=== PATIENT | female | born 1970 ===

== ENCOUNTER 2016-05-18 13:28 | Inpatient (IN) | payer OTHER, SELFPAY ==
--- NOTE | 2016-05-18 14:17 | C.PDOC ---
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 Pt states there "was an incident at the half-way" and now she can't go back. Pt walked to ED and now states that she is SI and depressed. Denies any other complaints at this time. Time Seen by Provider: 05/18/16 13:45 Chief Complaint (Nursing): Anxiety History Per: Patient History/Exam Limitations: no limitations Onset/Duration Of Symptoms: Hrs Current Symptoms Are (Timing): Still Present Severity: Mild Associated Symptoms: Depression, Suicidal Thoughts Involuntary Hold By: None Recent travel outside of the [place]: No Past Medical History Reviewed: Historical Data, Nursing Documentation, Vital Signs Vital Signs: Last Vital Signs Temp 98.3 F 05/18/16 15:35 Pulse 84 05/18/16 15:35 Resp 20 05/18/16 17:07 BP 164/78 H 05/18/16 15:35 Pulse Ox 100 05/18/16 15:35 - Medical History PMH: Anxiety, Asthma, HTN Family History: States: Unknown Family Hx - Social History Hx Alcohol Use: No Hx Substance Use: No - Immunization History Hx Tetanus Toxoid Vaccination: No Hx Influenza Vaccination: Yes (11/2016) Hx Pneumococcal Vaccination: No Review Of Systems Except As Marked, All Systems Reviewed And Found Negative. Psych: Positive for: Depression, Suicidal ideation Physical Exam - Physical Exam Appears: Non-toxic, No Acute Distress Skin: Warm, Dry, No Rash Head: Atraumatic, Normacephalic Eye(s): bilateral: Normal Inspection, PERRL, EOMI Oral Mucosa: Moist Neck: Normal ROM, Supple Chest: Symmetrical Cardiovascular: Rhythm Regular, No Friction Rub, No Murmur Respiratory: Normal Breath Sounds, No Rales, No Rhonchi, No Wheezing Back: Normal Inspection, No CVA Tenderness Extremity: Normal ROM, No Swelling Neurological/Psych: Oriented x3, Normal Motor, Normal Sensation Gait: Steady ED Course And Treatment - Laboratory Results Result Diagrams: 05/18/16 17:24 05/18/16 17:24 O2 Sat by Pulse Oximetry: 97 (on room air) Pulse Ox Interpretation: Normal Medical Decision Making Medical Decision Making: Pt well appearing, asking for a sandwich. Case was discussed with psychiatrist who agrees to admit the patient to his service. 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 - Scribe Statement The provider has reviewed the documentation as recorded by the Scribe Valente Morrison All medical record entries made by the Scribe were at my direction and personally dictated by me. I have reviewed the chart and agree that the record accurately reflects my personal performance of the history, physical exam, medical decision making, and the department course for this patient. I have also personally directed, reviewed, and agree with the discharge instructions and disposition.
[2016-05-18 17:37] LABS: BASO # 0.1 K/uL (0.0-0.2); EOS # 0.1 K/uL (0.0-0.7); EOS % 0.9 % (0.0-4.0); HEMATOCRIT 31.4 % (34.0-47.0); LYMPH # 1.5 K/uL (1.0-4.3); LYMPH % 17.6 % (20.0-40.0); MEAN CELL VOLUME 63.1 fL (81.0-99.0); MEAN CORPUSCULAR HGB CONC 30.1 g/dL (33.0-37.0); MEAN PLATELET VOLUME 8.9 fL (7.2-11.7); MONO # 0.5 K/uL (0.0-0.8); MONO % 5.7 % (0.0-10.0); RED CELL DISTRIBUTION WIDTH 18.4 % (11.5-14.5); WHITE BLOOD COUNT 8.5 K/uL (4.8-10.8)
[2016-05-18] MEDS ORDERED: Influenza Virus Vaccine 45 mcg/0.5 ml Syr IM ONE (17:37)
[2016-05-18 17:42] LABS: CHLORIDE 99 mmol/L (98-107); SODIUM 139 mmol/L (132-148)
[2016-05-18 17:43] LABS: POTASSIUM 3.4 mmol/L (3.6-5.2)
[2016-05-18 17:45] LABS: ALB/GLOB RATIO 1.2 (1.0-2.1); ALKALINE PHOSPHATASE 108 U/L (38-126); ALT/SGPT 24 U/L (9-52); AST/SGOT 28 U/L (14-36); BILIRUBIN,TOTAL 0.2 mg/dL (0.2-1.3); BLOOD UREA NITROGEN 15 mg/dL (7-17); CALCIUM 8.5 mg/dl (8.6-10.4); CARBON DIOXIDE 27 mmol/L (22-30); GFR AFRICAN-AMERICAN > 60; GLUCOSE,RANDOM 105 mg/dL (65-105); TOTAL PROTEIN 7.2 g/dL (6.3-8.3)
[2016-05-18 17:46] LABS: ALCOHOL SERUM < 10 mg/dl (0-10)
[2016-05-18 22:05] VITALS: O2SAT 97
[2016-05-19] MEDS ORDERED: Magnesium Hydroxide Susp 30 ml UD PO PRN (16:06)
[2016-05-20] MEDS ORDERED: Pneumococcal 23-Valent Vaccine IM ONE (10:00)
--- NOTE | 2016-05-20 22:31 | PCM.PSYCH ---
Initial Psychiatric Evaluation - Initial Psychiatric Evaluation Type of Admission: Voluntary Legal Status: Capacity Chief Complaint (in patient's own words): i HAVE THOUGHTS OF HURTING MYSELF Patient's Reaction to Hospitalization: I FEEL SAFE HERE History of Present Illness and Precipitating Events: PT IS 46N YEAR OLD FEMALE LIVING AT [facility] WITH HER BOY FRIEND. PT HAS 2 SONSAND 2 DAUGHTERS, THEY LIVE WITHBTHEIRVFATHER SINCE PT'S SEPARATION.PT HAS NO LEGAL HISTORY. PT HAS NEVER BEEN IN THE . BOTH PARENTS ARE4 . SHE HAS 1 BROTHER AND 2 SISTERS. PT HAS HAD THOUGHTS OF JUMPING OFF A JULISSA BUT HAS NEVER DONE SO. [place] [facility] [place]. PT HAS HAD PANIC ATTACKS. 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 SHE HASNO INCOME. SHE HAS BEEN ARRESTED FOR BACK [facility] SHE HAS HTN AND LD SUPPORT. PT DENIES ANY FAMILY HISTORY OF MENTAL ILLNESS OR SUBSTANCE ABUSE. Current Medications: Active Medications Generic Name Dose Route Start Last Admin Trade Name Freq PRN Reason Stop Dose Admin Acetaminophen 650 mg 05/19/16 16:05 Tylenol 325mg Tab PO Q6 PRN Pain, moderate (4-7) Magnesium Hydroxide 30 ml 05/19/16 16:06 Milk Of Magnesia PO Q6H PRN Constipation Paroxetine HCl 30 mg 05/20/16 10:00 05/20/16 09:22 Paxil PO 30 mg DAILY CORTES Administration Trazodone HCl 100 mg 05/19/16 22:00 05/20/16 21:48 Desyrel PO Not Given HS CORTES Past Psychiatric History - Past Psychiatric History Prior Professional Help: SEE HPI Pertinent Medical Hx (Current Medical&Sleep Prob, Allergies): Allergies Allergy/AdvReac Type Severity Reaction Status Date / Time No Known Allergies Allergy Verified 05/18/16 13:34 No Known Home Med 05/18/16 Review of Systems - Constitutional Constitutional: Malaise - EENT Eyes: UNREMARKABLE Ears: UNREMARKABLE Nose/Mouth/Throat: UNREMARKABLE - Breasts Breasts: UNREMARKABLE - Cardiovascular Cardiovascular: UNREMARKABLE - Respiratory Respiratory: UNREMARKABLE - Gastrointestinal Gastrointestinal: UNREMARKABLE - Genitourinary Genitourinary: UNREMARKABLE - Neurological Neurological: UNREMARKABLE - Psychiatric Psychiatric: Anhedonia, Anxiety, Change in Appetite, Difficulty Concentrating, Hopelessness, Suicidal Ideation - Endocrine Endocrine: UNREMARKABLE - Hematologic/Lymphatic Additional comments: ANEMIA THROMBOCYTOPENIA Mental Status Examination - Personal Presentation Personal Presentation: Looks older than stated age - Affect Affect: Constricted - Motor Activity Motor Activity: Calm - Reliability in Providing Information Reliability in Providing Information: Fair - Speech Speech: Organized - Mood Mood: Depressed, Anxious - Formal Thought Process Formal Thought Process: No Impairment - Cognitive Functions Orientation: Person, Place, Situation, Time Sensorium: Alert Attention/Concentration: Attentive Abstract Thinking: Uriah Estimate of Intelligence: Average Judgement: Intact, as evidence by: Good judgement Memory: Recent intact, as evidence by: 3/3 object recall, Remote intact, as evidenced by: Ability to recall historical events - Risk Risk: Suicidal - Strength & Assets Inventory Strength & Assets Inventory: Intelligence, Employment history DSM 5 DX - DSM 5 DSM 5 Diagnosis: MAJOR DEPRESSIVE DISORDER GENERALIZED ANXIETY DISORDER MAJOR DEPRESSIVE DISORDER PAXIL GROUPS SUPPORTIVE PSYCHOTHERAPY GENERALIZED ANXIETY DISORDER PAXIL COPING STRATEGIES - Recommended/Plan of Treatment Projected ELOS: 10 DAYS Prognosis: GOOD Discharge Plan and Discharge Criteria: NO LONGER SUICIDAL - Smoking Cessation Smoking Cessation Initiated: No
--- NOTE | 2016-05-20 22:41 | PCM.PYCHPN ---
Psychiatric Progress Note - Psychiatric Progress Note Patient seen today, length of contact: 17 MIN Patient Chief Complaint: I AM IRRITABLE Problems Identified/Issues Discussed: ANEMIA CONSTIPATION SYMPTOM MANAGEMENT Medical Problems: NOTHING ACUTE Diagnostic Results: REVIEWED DSM 5 Symptoms Update: ANHEDONIC AVOLITION Medication Change: No Medical Record Reviewed: Yes Mental Status Examination - Cognitive Function Orientation: Person, Place, Situation, Time Memory: Intact Attention: Poor Concentration: WNL Association: WNL Fund of Knowledge: WNL - Mood Mood: Depressed, Anxious - Affect Affect: Constricted - Speech Speech: Appropriate - Formal Thought Process Formal Thought Process: No Impairment - Suicidal Ideation Suicidal Ideation: No - Homicidal Ideation Homicidal Ideation: No Goal/Treatment Plan - Goal/Treatment Plan Need for Continued Stay: Severe depression anxiety Progress Toward Problem(s) and Goals/Treatment Plan: MAJOR DEPRESSIVE DISORDER PAXIL GROUPS OR CBT SUPPORTIVE PSYCHOTHERAPY Estimated Date of D/C: 05/26/16 - Smoking Cessation Smoking Cessation Initiated: No
--- NOTE | 2016-05-21 13:58 | PCM.PYCHPN ---
Psychiatric Progress Note - Psychiatric Progress Note Patient seen today, length of contact: 17 MIN Patient Chief Complaint: "anxiety" Problems Identified/Issues Discussed: Pt was seen, chart reviewed and case discussed. Psychiatric education and support given. 46 yo F with PMHx of MDD and PTSD was admitted for depression and anxiety attacks. States anxiety was triggered by a staff member at [facility]. Today, pt states she feels "down because of the weather." Denies suicidal ideation, denies hallucinations. Medication Change: No Medical Record Reviewed: Yes Mental Status Examination - Cognitive Function Orientation: Person, Place, Situation, Time Memory: Intact Attention: Poor Concentration: WNL Association: WNL Fund of Knowledge: WNL - Mood Mood: Depressed, Anxious - Affect Affect: Constricted - Speech Speech: Appropriate - Formal Thought Process Formal Thought Process: No Impairment - Suicidal Ideation Suicidal Ideation: No - Homicidal Ideation Homicidal Ideation: No Goal/Treatment Plan - Goal/Treatment Plan Need for Continued Stay: Remain at risks for inpatient hospitalization, Severe depression anxiety Progress Toward Problem(s) and Goals/Treatment Plan: Continue meds Attend groups and activities Support and psychoed After care planning Estimated Date of D/C: 05/26/16
--- NOTE | 2016-05-22 15:14 | PCM.PYCHPN ---
Psychiatric Progress Note - Psychiatric Progress Note Patient seen today, length of contact: 16 MIN Patient Chief Complaint: "Doing better" Problems Identified/Issues Discussed: Pt was seen, chart reviewed and case discussed. 46 yo F with PMHx of MDD and DUSTY was admitted for depression and anxiety. Today pt states her mood is improved and sleeping well. Denies suicidal ideation, homicidal ideations, and hallucinations. Upon discharge, pt plans to attend return to [facility] and ignore the staff member who triggered her anxiety. Pt will also attend an out patient program. Psychoeducation and support given. Medication Change: No Medical Record Reviewed: Yes Mental Status Examination - Cognitive Function Orientation: Person, Place, Situation, Time Memory: Intact Attention: Poor Concentration: WNL Association: WNL Fund of Knowledge: WNL - Mood Mood: Anxious - Affect Affect: Constricted - Speech Speech: Appropriate - Formal Thought Process Formal Thought Process: No Impairment - Suicidal Ideation Suicidal Ideation: No - Homicidal Ideation Homicidal Ideation: No Goal/Treatment Plan - Goal/Treatment Plan Need for Continued Stay: Remain at risks for inpatient hospitalization, Severe depression anxiety Progress Toward Problem(s) and Goals/Treatment Plan: MDD: Continue meds Attend groups and activities Support and psychoed After care planning DUSTY: Continue meds Attend groups and activities Support and psychoed After care planning Estimated Date of D/C: 05/26/16
--- NOTE | 2016-05-23 09:42 | PCM.PYCHDC ---
Mental Status Examination - Mental Status Examination Orientation: Person, Place, Situation, Time Memory: Intact Mood: Anxious Affect: Constricted Speech: Appropriate Attention: WNL Association: WNL Fund of Knowledge: WNL Formal Thought Process: No Impairment Suicidal Ideation: No Current Homicidal Ideation?: No Discharge Summary - Discharge Note Reason for Hospitalization: Depression, suicidal thoughts Psychiatric History (includes Medical, Family, Personal Hx): MDD, DUSTY Consultations:: List each consultation separately and include: 1. Reason for request. 2. Findings. 3. Follow-up Summary of Hospital Course include:: 1. Description of specific treatment plan utilized for patients during their course of treatmen. 2. Summarize the time- course for resolution of acute symptoms and/or regressed behaviors. 3. Describe issues identified and worked on during hospitalization. 4. Describe medication utilized. 5. Describe medical problems identified and treated. 6. Reassessment of suicide risk Summary of Hospital Course: Pt seen, chart reviewed and case discussed with staff. Pt is feeling better and eager for discharge. Will be returning to . [facility] senior living. Pt attended groups and activities Supportive psychotherapy used Paxil continued and she responded well to treatment She infact improved rather quickly that this may be more situational than organic this time. - Final Diagnosis (DSM 5) Condition upon Discharge: GOOD DSM 5: Major Depressive Disorder Generalized Anxiety Disorder Disposition: HOME/ ROUTINE Follow-up Treatment Plan: Continue below medications Attend aftercare return to ER if experience suicidal ideation, homicidal ideation, change in status or symptoms return. Prescriptions/Medication Reconciliation: traZODone [Desyrel] 100 mg PO HS #30 tab PARoxetine [Paxil] 30 mg PO DAILY #30 tab - Smoking Cessation Smoking Cessation Medication prescribed: No - Antipsychotic Medications Pt discharged on 2 or more routine antipsychotic medications: No
[2016-05-23 11:49] VITALS: BP 123/76; PULSE 84; RESP 20; TEMP 97.5
== END 2016-05-23 10:55 | disposition home or self-care (01) ==
LOC: C.ER 13:28 → C.5E 15:52
PROVIDERS: ADMIT Psychiatry & Neurology Psychiatry; ATTEND Psychiatry & Neurology Psychiatry
PROC: GZ3ZZZZ Medication Management (ICD-10-PCS; principal; 2016-05-18)
PROC: GZHZZZZ Group Psychotherapy (ICD-10-PCS; 2016-05-18)
PROC: GZ56ZZZ Individual Psychotherapy, Supportive (ICD-10-PCS; 2016-05-18)
DX: F32.9 Major depressive disorder, single episode, unspecified (principal); R45.851 Suicidal ideations; F41.1 Generalized anxiety disorder; I10 Essential (primary) hypertension; J45.909 Unspecified asthma, uncomplicated

== ENCOUNTER 2016-06-18 21:44 | Observation (INO) | payer MEDICAID, SELFPAY ==
[2016-06-18 22:20] VITALS: RESP 18
--- NOTE | 2016-06-18 23:29 | C.PDOC ---
History Of Present Illness 46 year old patient presents to the ED complaining of having a panic attack at the long-term [facility]. Patient states she has a history of panic attacks. She is currently not taking medications for it because she lost her prescriptions. Patient is requesting an evaluation. She denies chest pain, shortness of breath , nausea, vomiting, suicidal or homicidal ideation. Time Seen by Provider: 06/18/16 22:55 Chief Complaint (Nursing): Anxiety History Per: Patient History/Exam Limitations: no limitations Onset/Duration Of Symptoms: Other Current Symptoms Are (Timing): Still Present Severity: None Pain Scale Rating Of: 0 Recent travel outside of the [place]: No Additional History Per: Patient Past Medical History Reviewed: Historical Data, Nursing Documentation, Vital Signs Vital Signs: Last Vital Signs Temp 98 F 06/19/16 02:42 Pulse 80 06/19/16 02:42 Resp 18 06/19/16 02:42 BP 117/72 06/19/16 02:42 Pulse Ox 99 06/19/16 02:42 - Medical History PMH: Anxiety, Asthma, Depression, HTN, Kidney Stones, Post Traumatic Stress Disorder, Chronic Kidney Disease - [facility] Procedures GROUP PSYCHOTHERAPY (05/18/16) INDIVIDUAL PSYCHOTHERAPY, SUPPORTIVE (05/18/16) MEDICATION MANAGEMENT (05/18/16) Family History: States: Unknown Family Hx - Social History Hx Alcohol Use: No Hx Substance Use: No - Immunization History Hx Tetanus Toxoid Vaccination: No Hx Influenza Vaccination: Yes (11/2016) Hx Pneumococcal Vaccination: No Review Of Systems Except As Marked, All Systems Reviewed And Found Negative. Cardiovascular: Negative for: Chest Pain Respiratory: Negative for: Shortness of Breath Gastrointestinal: Negative for: Nausea, Vomiting Psych: Positive for: Anxiety. Negative for: Suicidal ideation Physical Exam - Physical Exam Appears: Non-toxic, No Acute Distress Skin: Warm, Dry Head: Atraumatic, Normacephalic Neck: Normal ROM, Supple Chest: Symmetrical Cardiovascular: Rhythm Regular Respiratory: Normal Breath Sounds, No Accessory Muscle Use, No Rales, No Rhonchi , No Wheezing Back: Normal Inspection Extremity: Normal ROM Neurological/Psych: Oriented x3, Normal Speech, Normal Cognition Gait: Steady ED Course And Treatment O2 Sat by Pulse Oximetry: 100 (room air) Pulse Ox Interpretation: Normal Progress Note: Patient arrived in the ED with an elevated blood pressure. Upon reassessment, patient's blood pressure has stabilized. Patient is homeless and sleeping comfortably in the ED. Paitent will be kept for observation until tomorrow morning because the long-term is closed for the night. Patient will be discharged in the morning. 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 - Scribe Statement The provider has reviewed the documentation as recorded by the Scribe Christa Huston All medical record entries made by the Scribe were at my direction and personally dictated by me. I have reviewed the chart and agree that the record accurately reflects my personal performance of the history, physical exam, medical decision making, and the department course for this patient. I have also personally directed, reviewed, and agree with the discharge instructions and disposition.
[2016-06-19 02:44] VITALS: BP 117/72; PULSE 80; TEMP 98
[2016-09-26 21:54] VITALS: O2SAT 100
== END 2016-06-19 06:10 | disposition home or self-care (01) ==
LOC: C.ER 21:44 → C.9OBSV 06-19 00:04
PROVIDERS: ADMIT Emergency Medicine; ATTEND Emergency Medicine
DX: F41.8 Other specified anxiety disorders (principal); F43.10 Post-traumatic stress disorder, unspecified; J45.909 Unspecified asthma, uncomplicated; N18.9 Chronic kidney disease, unspecified; I12.9 Hypertensive chronic kidney disease with stage 1 through stage 4 chronic kidney disease, or unspecified chronic kidney disease
CPT/HCPCS: 99284; G0378

== ENCOUNTER 2016-09-10 13:17 | Emergency (ER) | payer MEDICAID, OTHER ==
[2016-09-10 13:24] VITALS: TEMP 97.8; O2SAT 100
--- NOTE | 2016-09-10 14:25 | C.PDOC ---
History Of Present Illness Patient is a 46 y/o female, whose past medical history includes HTN, presents to the emergency department for evaluation of chest and shoulder pain. Patient reports L sided shoulder pain that is worse with movement and L sided chest pain that is worse with inspiration. Reports some cough. Denies any vomiting, abdominal pain, palpitations, shortness of breath, headache, weakness, numbness , fever Time Seen by Provider: 09/10/16 13:31 Chief Complaint (Nursing): Chest Pain History Per: Patient History/Exam Limitations: no limitations Onset/Duration Of Symptoms: Days (2) Current Symptoms Are (Timing): Still Present Quality: Pressure Associated Symptoms: Nausea, Other (dizziness). denies: Dyspnea, Diaphoresis, Syncope Modifying Factors: None Exacerbating Factors: None Alleviating Factors: None Recent travel outside of the [place]: No Additional History Per: Patient Past Medical History Reviewed: Historical Data, Nursing Documentation, Vital Signs Vital Signs: Last Vital Signs Temp 97.8 F 09/10/16 13:20 Pulse 68 09/10/16 16:20 Resp 18 09/10/16 16:20 BP 124/76 09/10/16 16:20 Pulse Ox 100 09/10/16 16:20 - Medical History PMH: Anxiety, Asthma, Depression, HTN, Kidney Stones, Post Traumatic Stress Disorder, Chronic Kidney Disease Denies: Diabetes, Hepatitis, HIV, Seizures, Sexually Transmitted Disease - [facility] Procedures GROUP PSYCHOTHERAPY (05/18/16) INDIVIDUAL PSYCHOTHERAPY, SUPPORTIVE (05/18/16) MEDICATION MANAGEMENT (05/18/16) Family History: States: Unknown Family Hx - Social History Hx Alcohol Use: No Hx Substance Use: No - Immunization History Hx Tetanus Toxoid Vaccination: No Hx Influenza Vaccination: Yes (11/2016) Hx Pneumococcal Vaccination: No Review Of Systems Except As Marked, All Systems Reviewed And Found Negative. Constitutional: Negative for: Fever, Chills Cardiovascular: Positive for: Chest Pain. Negative for: Palpitations, Orthopnea , Edema, Light Headedness Respiratory: Positive for: Cough. Negative for: Shortness of Breath, SOB with Excertion, Sputum, Wheezing Gastrointestinal: Negative for: Nausea, Vomiting, Abdominal Pain, Diarrhea Genitourinary: Negative for: Dysuria Musculoskeletal: Negative for: Neck Pain Skin: Negative for: Rash Neurological: Negative for: Weakness, Numbness, Headache, Dizziness Physical Exam - Physical Exam Appears: Well, Non-toxic, No Acute Distress Skin: Normal Color, Warm, Dry Head: Atraumatic, Normacephalic Eye(s): bilateral: Normal Inspection, PERRL, EOMI Neck: Normal ROM, Supple Chest: Symmetrical, No Tenderness Cardiovascular: Rhythm Regular, No Murmur Respiratory: Normal Breath Sounds, No Accessory Muscle Use, No Rales, No Rhonchi , No Wheezing Gastrointestinal/Abdominal: Soft, No Tenderness Back: Normal Inspection, No CVA Tenderness Extremity: Normal ROM, No Pedal Edema Neurological/Psych: Oriented x3, Normal Speech, Normal Cognition Gait: Steady ED Course And Treatment - Laboratory Results Result Diagrams: 09/10/16 14:40 09/10/16 14:40 ECG: Interpreted By Me, Viewed By Me ECG Rhythm: Sinus Rhythm ECG Interpretation: No Acute Changes Interpretation Of ECG: Normal intervals. No ST wave changes. Rate From EC (bpm) O2 Sat by Pulse Oximetry: 100 (on RA) Pulse Ox Interpretation: Normal Medical Decision Making Medical Decision Making: Differential Diagnosis: pneumothorax, pneumonia, vs. ACS Blood work, EKG, CXR ordered and reviewed. Patient was given Aspirin. 3:57PM EKG shows NSR at 66bpm with normal intervals and no ST changes. Cxray negative. Shoulder xray negative. Trop x 1 negative. D-dimer negative Chest pain is resolved on reevaluation. Patient has had 2 days of unchanged pain that is worse with movement of L arm and chest pain associated with cough. Appears more consistent with musculoskeletal strain and uri. Patient has normal ekg and only risk factor is htn. She reports that she can follow-up with clinic and will return with worsening symptoms. Disposition - Disposition Disposition: HOME/ ROUTINE Disposition Time: 16:02 Condition: GOOD Additional Instructions: Return to ED if condition worsens. Follow-up with PMD within 2 days - Clinical Impression Clinical Impression: Pleuritic pain, Shoulder pain - Scribe Statement The provider has reviewed the documentation as recorded by the Lj Huston All medical record entries made by the Lorenzoibshonna were at my direction and personally dictated by me. I have reviewed the chart and agree that the record accurately reflects my personal performance of the history, physical exam, medical decision making, and the department course for this patient. I have also personally directed, reviewed, and agree with the discharge instructions and disposition.
[2016-09-10 14:47] LABS: BASO # 0.1 K/uL (0.0-0.2); BASO % 1.9 % (0.0-2.0); EOS # 0.1 K/uL (0.0-0.7); EOS % 0.9 % (0.0-4.0); HEMOGLOBIN 9.6 g/dL (11.0-16.0); LYMPH # 1.7 K/uL (1.0-4.3); LYMPH % 22.4 % (20.0-40.0); MEAN CELL VOLUME 61.3 fL (81.0-99.0); MEAN CORPUSCULAR HEMOGLOBIN 18.2 pg (27.0-31.0); MEAN CORPUSCULAR HGB CONC 29.7 g/dL (33.0-37.0); MEAN PLATELET VOLUME 8.6 fL (7.2-11.7); MONO # 0.4 K/uL (0.0-0.8); MONO % 5.7 % (0.0-10.0); NEUT # 5.1 K/uL (1.8-7.0); NEUT % 69.1 % (50.0-75.0); RBC 5.27 Mil/uL (3.80-5.20); RED CELL DISTRIBUTION WIDTH 19.8 % (11.5-14.5); WHITE BLOOD COUNT 7.4 K/uL (4.8-10.8)
[2016-09-10 14:50] LABS: ALBUMIN 3.7 g/dL (3.5-5.0)
[2016-09-10 14:53] LABS: GFR AFRICAN-AMERICAN > 60; GFR NON-AFRICAN AMERICAN > 60
[2016-09-10 14:54] LABS: ALB/GLOB RATIO 1.2 (1.0-2.1); ALT/SGPT 32 U/L (9-52); AST/SGOT 21 U/L (14-36); BLOOD UREA NITROGEN 12 mg/dL (7-17); CALCIUM 8.4 mg/dl (8.6-10.4)
--- NOTE | 2016-09-10 15:01 | RAD ---
HISTORY: chest pain COMPARISON: None available. TECHNIQUE: Chest, one view. FINDINGS: LUNGS: Left basilar atelectasis. Please note that chest x-ray has limited sensitivity for the detection of pulmonary masses. PLEURA: No significant pleural effusion identified. No definite pneumothorax . CARDIOVASCULAR: Heart size appears within normal limits. OSSEOUS STRUCTURES: No acute osseous abnormality identified. VISUALIZED UPPER ABDOMEN: Unremarkable. OTHER FINDINGS: None. IMPRESSION: Minimal left basilar atelectasis.
[2016-09-10 15:03] LABS: B-TYPE NATRIURETIC PEPTIDE 132 pg/mL (0-450); CK-MB 0.64 ng/mL (0.0-3.38)
--- NOTE | 2016-09-10 15:44 | RAD ---
PROCEDURE: Radiographs of the Left Shoulder HISTORY: L shoulder pain COMPARISON: Chest x-ray performed 09/10/16 FINDINGS: BONES: No acute displaced fracture. The distal clavicle and underlying ribs appear intact. JOINTS: No acute dislocation. SOFT TISSUES: Soft tissues appear unremarkable. No evidence of radiopaque foreign body. IMPRESSION: No acute displaced fracture or dislocation evident. If symptoms persist or if there is continued clinical concern, x-ray follow-up in 7-10 days should be considered.
[2016-09-10 16:21] VITALS: BP 124/76; PULSE 68; RESP 18
--- NOTE | 2016-09-11 12:58 | CARD ---
APPROVED REPORT EKG Measurement Heart [id number] <Conclusion> Normal sinus rhythm Normal ECG
--- NOTE | 2016-09-19 14:37 | CARD ---
APPROVED REPORT EKG Measurement Heart [id number] <Conclusion> Normal sinus rhythm Normal ECG
== END 2016-09-10 16:21 | disposition home or self-care (01) ==
LOC: C.ER 13:17
DX: R07.81 Pleurodynia (principal); M25.512 Pain in left shoulder

== ENCOUNTER 2016-10-09 00:24 | Emergency (ER) | payer MEDICAID ==
[2016-10-09 01:44] VITALS: BP 147/86; O2SAT 100
[2016-10-09] MEDS ORDERED: Apap-Butalbital-Caffeine 325-50-40mg Tab PO STA (04:08)
[2016-10-09] MEDS ORDERED: Apap-Butalbital-Caffeine 325-50-40mg Tab ONE (04:21)
--- NOTE | 2016-10-09 05:12 | C.PDOC ---
History Of Present Illness 46 year old female who presents to the ER with a complaint of a headache for the past 3 days. Patient was found in the ER waiting room, when questioned if she wants to be seen she stated she has a headache and wants a place to stay. Denies nausea, vomiting, dizziness, fever, or chills. Time Seen by Provider: 10/09/16 02:05 Chief Complaint (Nursing): Headache History Per: Patient History/Exam Limitations: no limitations Onset/Duration Of Symptoms: Days Current Symptoms Are (Timing): Still Present Preceeding Symptoms: None Associated Symptoms: denies: Photophobia, Blurred Vision, Nausea, Vomiting, Extremity Weakness Recent travel outside of the [place]: No Past Medical History Reviewed: Historical Data, Nursing Documentation, Vital Signs Vital Signs: Last Vital Signs Temp 98 F 10/09/16 04:50 Pulse 62 10/09/16 04:50 Resp 16 10/09/16 04:50 BP 147/86 10/09/16 01:39 Pulse Ox 100 10/09/16 06:33 - Medical History PMH: Anxiety, Asthma, Depression, HTN, Kidney Stones, Post Traumatic Stress Disorder, Chronic Kidney Disease, Schizophrenia Surgical History: No Surg Hx - [facility] Procedures GROUP PSYCHOTHERAPY (05/18/16) INDIVIDUAL PSYCHOTHERAPY, SUPPORTIVE (05/18/16) MEDICATION MANAGEMENT (05/18/16) Family History: States: Unknown Family Hx - Social History Hx Alcohol Use: No Hx Substance Use: No - Immunization History Hx Tetanus Toxoid Vaccination: No Hx Influenza Vaccination: Yes (11/2016) Hx Pneumococcal Vaccination: No Review Of Systems Constitutional: Negative for: Fever, Chills Gastrointestinal: Negative for: Nausea, Vomiting, Diarrhea Neurological: Positive for: Headache. Negative for: Dizziness Physical Exam - Physical Exam Appears: Non-toxic, No Acute Distress Skin: Normal Color, Warm, Dry, No Rash Head: Atraumatic, Normacephalic Eye(s): bilateral: Normal Inspection, PERRL, EOMI Ear(s): Bilateral: Normal Oral Mucosa: Moist Throat: No Erythema, No Exudate Neck: Normal ROM, Supple Chest: Symmetrical, No Tenderness Cardiovascular: Rhythm Regular, No Friction Rub, No Murmur Respiratory: Normal Breath Sounds, No Rales, No Rhonchi, No Wheezing Gastrointestinal/Abdominal: Soft, No Tenderness Back: Normal Inspection, No CVA Tenderness Extremity: Normal ROM, No Tenderness, No Swelling Neurological/Psych: Oriented x3, Normal Speech, Normal Cognition, Normal Motor Gait: Steady ED Course And Treatment O2 Sat by Pulse Oximetry: 100 (Room air) Pulse Ox Interpretation: Normal Medical Decision Making Medical Decision Making: Plan: * Fioricet On reevaluation, patient's pain has improved, Ambulatory in the Ed with steady gait. will discharge home. Disposition - Disposition Referrals: Alexsandra Fletcher MD [Staff Provider] - Disposition: HOME/ ROUTINE Disposition Time: 04:56 Condition: GOOD Prescriptions: Acetaminophen/Butalbital/Caf [Fioricet] 1 tab PO TID PRN #20 tab PRN Reason: Headache Instructions: Migraine Headache (ED) Forms: [facility] (Gibraltarian) - Clinical Impression Clinical Impression: Migraine, Malingering - Scribe Statement The provider has reviewed the documentation as recorded by the Scribe Chemo Dawn All medical record entries made by the Scribe were at my direction and personally dictated by me. I have reviewed the chart and agree that the record accurately reflects my personal performance of the history, physical exam, medical decision making, and the department course for this patient. I have also personally directed, reviewed, and agree with the discharge instructions and disposition.
[2016-10-09 05:18] VITALS: PULSE 62; RESP 16; TEMP 98
== END 2016-10-09 04:55 | disposition home or self-care (01) ==
LOC: C.ER 00:24
DX: G43.909 Migraine, unspecified, not intractable, without status migrainosus (principal); Z76.5 Malingerer [conscious simulation]

== ENCOUNTER 2016-12-03 12:17 | Emergency (ER) | payer MEDICAID ==
[2016-12-03 12:27] VITALS: TEMP 98.2; O2SAT 100
--- NOTE | 2016-12-03 14:06 | C.PDOC ---
History Of Present Illness 46 y/o female with multiple medical issues c/o pain to proximal lateral left thigh that radiates to left arm and up to her head with headache x several days. pt denies any injuries or falls. no fever or chills. nothing taken for pain. denies cp, sob, no calf pain or tenderness. . Time Seen by Provider: 12/03/16 12:41 Chief Complaint (Nursing): Lower Extremity Problem/Injury History Per: Patient History/Exam Limitations: no limitations Onset/Duration Of Symptoms: Days (4) Current Symptoms Are (Timing): Worse Severity: Moderate Pain Scale Rating Of: 8 Recent travel outside of the [place]: No Past Medical History Reviewed: Historical Data, Nursing Documentation, Vital Signs Vital Signs: Last Vital Signs Temp 98.2 F 12/03/16 12:24 Pulse 76 12/03/16 16:00 Resp 18 12/03/16 16:00 BP 156/90 H 12/03/16 16:00 Pulse Ox 100 12/04/16 21:25 - Medical History PMH: Anxiety, Asthma, Depression, HTN, Kidney Stones, Post Traumatic Stress Disorder, Chronic Kidney Disease, Schizophrenia Denies: Diabetes, Hepatitis, HIV, Seizures, Sexually Transmitted Disease - [facility] Procedures GROUP PSYCHOTHERAPY (05/18/16) INDIVIDUAL PSYCHOTHERAPY, SUPPORTIVE (05/18/16) MEDICATION MANAGEMENT (05/18/16) Family History: States: Unknown Family Hx - Social History Hx Tobacco Use: No Hx Alcohol Use: No Hx Substance Use: No - Immunization History Hx Tetanus Toxoid Vaccination: No Hx Influenza Vaccination: No Hx Pneumococcal Vaccination: No Review Of Systems Constitutional: Negative for: Fever, Chills Cardiovascular: Negative for: Chest Pain Respiratory: Negative for: Cough, Shortness of Breath Musculoskeletal: Positive for: Arm Pain, Leg Pain. Negative for: Neck Pain Skin: Negative for: Rash Neurological: Negative for: Weakness, Numbness Physical Exam - Physical Exam Appears: Non-toxic, No Acute Distress Skin: Warm, Dry Head: Atraumatic, Normacephalic Oral Mucosa: Moist Neck: Normal ROM, No Midline Cervical Tenderness Chest: Symmetrical, No Deformity, No Tenderness Cardiovascular: Rhythm Regular, No Murmur Respiratory: Normal Breath Sounds Gastrointestinal/Abdominal: Soft, No Tenderness Back: Normal Inspection, No CVA Tenderness, No Vertebral Tenderness Extremity: Normal ROM, Tenderness (left lateral thigh, no erythema, warmth, or swelling noted, no ecchymosis. ), Other (tender left hip with from, ambulates normally) Pulses: Left Dorsalis Pedis: Normal, Right Dorsalis Pedis: Normal Neurological/Psych: Oriented x3, Normal Speech, Normal Cognition, Normal Cranial Nerves, Normal Motor, Normal Sensation ED Course And Treatment O2 Sat by Pulse Oximetry: 100 Medical Decision Making Medical Decision Making: pt reports she has menses now, and is not . 353 pm pt with no acute fx on xray, some arthritis noted. will d/c with tylenol and muscle relaxant. Disposition Counseled Patient/Family Regarding: Diagnosis, Need For Followup, Rx Given - Disposition Referrals: [facility] [Outside] Disposition: HOME/ ROUTINE Disposition Time: 15:54 Condition: STABLE Additional Instructions: Follow up in medical clinic; call for an appt. Take Tylenol as prescribed; take Muscle relaxant at bedtime- makes you sleepy. Return to ER for any worse symptoms. Prescriptions: Acetaminophen [Tylenol 325mg tab] 650 mg PO Q6 #30 tab Cyclobenzaprine [Cyclobenzaprine HCl] 10 mg PO HS #6 tab Instructions: Hip Pain (ED) Forms: General Discharge Instructions, [facility] (Hungarian) - Clinical Impression Clinical Impression: Hip pain, left
--- NOTE | 2016-12-03 15:53 | RAD ---
PROCEDURE: Left Hip X-ray Radiographs. HISTORY: left hip and up thigh pain COMPARISON: None. FINDINGS: BONES: Normal. No fracture. 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 Unremarkable appearance of the hips. SOFT TISSUES: Normal. OTHER FINDINGS: None. IMPRESSION: Unremarkable left hip. 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
[2016-12-03 16:00] VITALS: BP 156/90; PULSE 76; RESP 18
== END 2016-12-03 16:01 | disposition home or self-care (01) ==
LOC: C.ER 12:17
DX: M25.552 Pain in left hip (principal)

== ENCOUNTER 2017-02-12 14:07 | Emergency (ER) | payer MEDICAID ==
[2017-02-12 14:25] VITALS: PULSE 60
--- NOTE | 2017-02-12 15:42 | CT ---
PROCEDURE: CT HEAD WITHOUT CONTRAST. HISTORY: Headache, HTN COMPARISON: None available. TECHNIQUE: Axial computed tomography images were obtained through the head/brain without intravenous contrast. Radiation dose: Total exam DLP = 820.70 mGy-cm. This CT exam was performed using one or more of the following dose reduction techniques: Automated exposure control, adjustment of the mA and/or kV according to patient size, and/or use of iterative reconstruction technique. FINDINGS: HEMORRHAGE: No intracranial hemorrhage. BRAIN: No mass effect or edema. The moreno-white matter differentiation appears intact. Please note that MRI with diffusion imaging is more sensitive in the detection of acute ischemic event. VENTRICLES: No hydrocephalus. CALVARIUM: Unremarkable. PARANASAL SINUSES: Unremarkable as visualized. No significant inflammatory changes. MASTOID AIR CELLS: Unremarkable as visualized. No inflammatory changes. OTHER FINDINGS: None. IMPRESSION: No acute intracranial pathology identified.
[2017-02-12 15:53] LABS: BASO # 0.1 K/uL (0.0-0.2); EOS # 0.1 K/uL (0.0-0.7); EOS % 1.5 % (0.0-4.0); HEMATOCRIT 30.1 % (34.0-47.0); LYMPH # 1.6 K/uL (1.0-4.3); LYMPH % 25.3 % (20.0-40.0); MEAN CELL VOLUME 60.1 fL (81.0-99.0); MEAN CORPUSCULAR HEMOGLOBIN 18.1 pg (27.0-31.0); MEAN CORPUSCULAR HGB CONC 30.2 g/dL (33.0-37.0); MEAN PLATELET VOLUME 8.7 fL (7.2-11.7); MONO # 0.5 K/uL (0.0-0.8); MONO % 8.1 % (0.0-10.0); RED CELL DISTRIBUTION WIDTH 19.9 % (11.5-14.5); WHITE BLOOD COUNT 6.3 K/uL (4.8-10.8)
[2017-02-12 16:14] LABS: ALB/GLOB RATIO 1.4 (1.0-2.1); ALKALINE PHOSPHATASE 132 U/L (38-126); ALT/SGPT 27 U/L (9-52); AST/SGOT 33 U/L (14-36); BILIRUBIN,TOTAL 0.5 mg/dL (0.2-1.3); BLOOD UREA NITROGEN 14 mg/dL (7-17); CALCIUM 8.1 mg/dl (8.6-10.4); CARBON DIOXIDE 28 mmol/L (22-30); CHLORIDE 100 mmol/L (98-107); GFR AFRICAN-AMERICAN > 60; GLUCOSE,RANDOM 86 mg/dL (65-105); MAGNESIUM 1.6 mg/dL (1.6-2.3); POTASSIUM 3.8 mmol/L (3.6-5.2); SODIUM 133 mmol/L (132-148); TOTAL PROTEIN 6.7 g/dL (6.3-8.3)
[2017-02-12 16:47] VITALS: RESP 16; TEMP 97.5; O2SAT 100
[2017-02-12 16:56] LABS: RBC URINE 1 /hpf (0-3); URINE BACTERIA MOD (<OCC); URINE BILIRUBIN NEGATIVE (NEGATIVE); URINE BLOOD NEGATIVE (NEGATIVE); URINE COLOR Straw (YELLOW); URINE GLUCOSE (UA) NORMAL (Normal); URINE KETONE TRACE mg/dL (NEGATIVE); URINE LEUKOCYTE ESTERASE 3+ Leu/uL (Negative); URINE PROTEIN NEGATIVE (NEGATIVE); URINE UROBILINOGEN NORMAL mg/dL (0.2-1.0); WBC URINE 31 /hpf (0-5)
--- NOTE | 2017-02-12 17:12 | C.PDOC ---
History Of Present Illness Pt was sent from the clinic due to elevated blood pressure. Time Seen by Provider: 02/12/17 14:55 Chief Complaint (Nursing): High Blood Pressure History Per: Patient Onset/Duration Of Symptoms: Unknown Current Symptoms Are (Timing): Still Present Associated Symptoms: Headache Severity: Moderate Exacerbating Factor(s): Pos: None Additional History Per: Prior Records Past Medical History Reviewed: Historical Data, Nursing Documentation, Vital Signs Vital Signs: Last Vital Signs Temp 97.5 F L 02/12/17 16:46 Pulse 60 02/12/17 16:46 Resp 16 02/12/17 16:46 BP 179/79 H 02/12/17 16:46 Pulse Ox 100 02/12/17 16:46 - Medical History PMH: Anemia, Anxiety, Asthma, Depression, HTN (Gestational), Kidney Stones, Post Traumatic Stress Disorder, Chronic Kidney Disease, Schizophrenia Other Surgeries: Tubal ligation - [facility] Procedures GROUP PSYCHOTHERAPY (05/18/16) INDIVIDUAL PSYCHOTHERAPY, SUPPORTIVE (05/18/16) MEDICATION MANAGEMENT (05/18/16) Family History: States: Unknown Family Hx - Social History Hx Tobacco Use: No Hx Alcohol Use: No Hx Substance Use: No - Immunization History Hx Tetanus Toxoid Vaccination: No Hx Influenza Vaccination: No Hx Pneumococcal Vaccination: No Review Of Systems Except As Marked, All Systems Reviewed And Found Negative. Constitutional: Negative for: Fever ENT: Positive for: Nose Congestion, Throat Pain Respiratory: Positive for: Cough. Negative for: Shortness of Breath, Hemoptysis Gastrointestinal: Negative for: Vomiting, Abdominal Pain, Diarrhea Genitourinary: Positive for: Dysuria (?) Musculoskeletal: Positive for: Back Pain. Negative for: Neck Pain Skin: Negative for: Rash Neurological: Positive for: Headache. Negative for: Weakness, Numbness, Seizures, Altered Mental Status Physical Exam - Physical Exam Appears: Non-toxic, No Acute Distress Skin: Normal Color, Warm, Dry, No Rash Head: Atraumatic, Normacephalic Eye(s): bilateral: Normal Inspection, PERRL, EOMI Neck: Normal ROM, Supple Cardiovascular: Rhythm Regular Respiratory: Normal Breath Sounds, No Accessory Muscle Use Gastrointestinal/Abdominal: Soft, No Tenderness Back: No CVA Tenderness Extremity: Normal ROM Neurological/Psych: Oriented x3, Normal Speech, Normal Motor, Normal Sensation ED Course And Treatment - Laboratory Results Result Diagrams: 02/12/17 15:47 02/12/17 15:47 Interpretation Of Abnormal: Probable UTI, urine C&S sent. Urine POC: Negative ECG: Interpreted By Me, Viewed By Me ECG Rhythm: Sinus Rhythm ECG Interpretation: No Acute Changes Rate From EC O2 Sat by Pulse Oximetry: 100 Pulse Ox Interpretation: Normal - CT Scan/US CT head Other Rad Studies (CT/US): Read By Radiologist, Radiology Report Reviewed CT/US Interpretation: IMPRESSION: No acute intracranial pathology identified. Disposition Counseled Patient/Family Regarding: Studies Performed, Diagnosis, Need For Followup, Rx Given - Disposition Referrals: [facility] [Outside] Disposition: HOME/ ROUTINE Disposition Time: 17:13 Condition: IMPROVED Additional Instructions: Follow up in the clinic within 1 week. Return to the ER if you develop vomiting , shortness of breath, high fever, worsening of symptoms or if you have any other concerns. Prescriptions: Acetaminophen [Tylenol Extra Strength] 2 tab PO Q6 PRN #30 tablet PRN Reason: Pain, Moderate (4-7) Cephalexin [cephalexin] 500 mg PO TID #21 cap hydroCHLOROthiazide [Microzide] 12.5 mg PO DAILY #30 cap Instructions: Hypertension (ED) Forms: [facility] (Tristanian) - Clinical Impression Clinical Impression: Hypertension, UTI (urinary tract infection), URI (upper respiratory infection)
[2017-02-12 17:30] VITALS: BP 168/85
--- NOTE | 2017-02-13 23:10 | CARD ---
APPROVED REPORT EKG Measurement Heart [id number] <Conclusion> Normal sinus rhythm Normal ECG
== END 2017-02-12 17:30 | disposition home or self-care (01) ==
LOC: C.ER 14:07
DX: N39.0 Urinary tract infection, site not specified (principal); J06.9 Acute upper respiratory infection, unspecified; I12.9 Hypertensive chronic kidney disease with stage 1 through stage 4 chronic kidney disease, or unspecified chronic kidney disease; N18.9 Chronic kidney disease, unspecified

== ENCOUNTER 2017-02-16 00:23 | Emergency (ER) | payer MEDICAID ==
--- NOTE | 2017-02-16 03:00 | C.PDOC ---
History Of Present Illness 46 yo female from halfway says she did not want to answer anyone because she wants to sleep. Has no complaints. Is not violent or suicidal. Time Seen by Provider: 02/16/17 00:51 Chief Complaint (Nursing): Psychiatric Evaluation Past Medical History Vital Signs: Last Vital Signs Temp 98.1 F 02/16/17 06:38 Pulse 94 H 02/16/17 06:38 Resp 18 02/16/17 06:38 BP 154/78 H 02/16/17 06:38 Pulse Ox 100 03/08/17 14:53 - Medical History PMH: Anemia, Anxiety, Asthma, Bipolar Disorder, Depression, HTN (Gestational), Kidney Stones, Post Traumatic Stress Disorder, Chronic Kidney Disease, Schizophrenia Denies: HIV, Seizures, Sexually Transmitted Disease - [facility] Procedures GROUP PSYCHOTHERAPY (02/26/17) INDIVIDUAL PSYCHOTHERAPY, COGNITIVE-BEHAVIORAL (02/26/17) INDIVIDUAL PSYCHOTHERAPY, SUPPORTIVE (02/26/17) INTRODUCTION OF SERUM/TOX/VACCINE INTO MUSCLE, PERC APPROACH (02/26/17) MEDICATION MANAGEMENT (05/18/16) Family History: States: Unknown Family Hx - Social History Hx Tobacco Use: No Hx Alcohol Use: No Hx Substance Use: No - Immunization History Hx Tetanus Toxoid Vaccination: No Hx Influenza Vaccination: No Hx Pneumococcal Vaccination: No Physical Exam - Physical Exam Appears: Well, Non-toxic, No Acute Distress Skin: Normal Color, Warm Head: Atraumatic, Normacephalic Eye(s): bilateral: Normal Inspection, PERRL, EOMI Oral Mucosa: Moist Tongue: Normal Appearing ED Course And Treatment O2 Sat by Pulse Oximetry: 100 Disposition - Disposition Disposition: HOME/ ROUTINE Disposition Time: 16:00 Condition: STABLE Instructions: Anxiety (ED) Forms: [facility] (Omani) - Clinical Impression Clinical Impression: Anxiety, Moderate major depression, single episode
[2017-02-16 03:38] VITALS: RESP 18
[2017-02-16 05:03] VITALS: TEMP 98.1
[2017-02-16 06:41] VITALS: BP 154/78; PULSE 94; O2SAT 100
== END 2017-02-16 06:51 | disposition home or self-care (01) ==
LOC: C.ER 00:23
DX: F32.1 Major depressive disorder, single episode, moderate (principal); F41.9 Anxiety disorder, unspecified

== ENCOUNTER 2017-02-18 06:27 | Emergency (ER) | payer MEDICAID ==
[2017-02-18 06:57] VITALS: BP 188/110; PULSE 89; RESP 18; TEMP 99.1; O2SAT 100
--- NOTE | 2017-02-18 07:19 | C.PDOC ---
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 REMAINDER NEG Time Seen by Provider: 02/18/17 07:18 Chief Complaint (Nursing): Psychiatric Evaluation History Per: Patient History/Exam Limitations: no limitations Past Medical History Reviewed: Historical Data, Nursing Documentation, Vital Signs Vital Signs: Last Vital Signs Temp 99.1 F 02/18/17 06:44 Pulse 89 02/18/17 06:44 Resp 18 02/18/17 06:44 BP 188/110 H 02/18/17 06:44 Pulse Ox 100 02/18/17 07:46 - Medical History PMH: Anemia, Anxiety, Asthma, Bipolar Disorder, Depression, HTN (Gestational), Kidney Stones, Post Traumatic Stress Disorder, Chronic Kidney Disease, Schizophrenia - [facility] Procedures GROUP PSYCHOTHERAPY (05/18/16) INDIVIDUAL PSYCHOTHERAPY, SUPPORTIVE (05/18/16) MEDICATION MANAGEMENT (05/18/16) Family History: States: No Known Family Hx - Social History Hx Tobacco Use: No Hx Alcohol Use: No Hx Substance Use: No - Immunization History Hx Tetanus Toxoid Vaccination: No Hx Influenza Vaccination: No Hx Pneumococcal Vaccination: No Review Of Systems Constitutional: Negative for: Fever Respiratory: Negative for: Shortness of Breath Neurological: Negative for: Weakness, Numbness Psych: Negative for: Suicidal ideation Physical Exam - Physical Exam Appears: Non-toxic, No Acute Distress Head: Atraumatic, Normacephalic Eye(s): bilateral: Normal Inspection Neck: Normal ROM Cardiovascular: Rhythm Regular Respiratory: No Accessory Muscle Use ED Course And Treatment O2 Sat by Pulse Oximetry: 100 Progress - Re-Evaluation Re-evaluation Note: 02/18/17 07:18 D/W CRISIS MARIANO: PT WELL KNOWN TO CRISIS, PT CURRENTLY @ [facility]. +HOMELESS. POSSIBLE MALINGERING. NO INDICATION FOR PSYCH ADMISSION 02/18/17 07:46 PER RN, PT LEFT PRIOR TO DC - Data Reviewed Data Reviewed: Old records - Continuity of Care Discussed pt. case with hospice care consultant/specialty: Psychiatry Disposition Counseled Patient/Family Regarding: Diagnosis, Need For Followup - Disposition Referrals: Non [facility] Provider, [Primary Care Provider] - Disposition: HOME/ ROUTINE Disposition Time: 07:43 Condition: GOOD Forms: [facility] (Setswana) - Clinical Impression Clinical Impression: Schizophrenia, Malingering - Scribe Statement The provider has reviewed the documentation as recorded by the Scribe (Kiera Griffin) All medical record entries made by the Scribe were at my direction and personally dictated by me. I have reviewed the chart and agree that the record accurately reflects my personal performance of the history, physical exam, medical decision making, and the department course for this patient. I have also personally directed, reviewed, and agree with the discharge instructions and disposition.
== END 2017-02-18 07:46 | disposition home or self-care (01) ==
LOC: SUPCPDRO 06:27 → C.ER 06:27
DX: F20.9 Schizophrenia, unspecified (principal); Z76.5 Malingerer [conscious simulation]

== ENCOUNTER 2017-02-18 12:39 | Emergency (ER) | payer MEDICAID ==
[2017-02-18 12:44] VITALS: BP 208/96; PULSE 90; RESP 16; TEMP 98.5; O2SAT 96
--- NOTE | 2017-02-18 13:05 | C.PDOC ---
History Of Present Illness 46-YEAR-OLD FEMALE, PRESENTS TO THE EMERGENCY DEPARTMENT, STATES "I SAW GOD". NO NEW SX SINCE DC FROM ER THIS MORNING. EXAM PSYCH CALM COOPERATIVE. +ACTIVE AUD HALLUCINATION. NO SI/SA REMAINDER NEG Time Seen by Provider: 02/18/17 12:59 Chief Complaint (Nursing): Psychiatric Evaluation History Per: Patient History/Exam Limitations: no limitations Onset/Duration Of Symptoms: Days Current Symptoms Are (Timing): Still Present Past Medical History Reviewed: Historical Data, Nursing Documentation, Vital Signs Vital Signs: Last Vital Signs Temp 98.5 F 02/18/17 12:42 Pulse 90 02/18/17 12:42 Resp 16 02/18/17 12:42 BP 208/96 H 02/18/17 12:42 Pulse Ox 96 02/18/17 13:21 - Medical History PMH: Anemia, Anxiety, Asthma, Bipolar Disorder, Depression, HTN (Gestational), Kidney Stones, Post Traumatic Stress Disorder, Chronic Kidney Disease, Schizophrenia Denies: Diabetes, Hepatitis, HIV, Seizures, Sexually Transmitted Disease - [facility] Procedures GROUP PSYCHOTHERAPY (05/18/16) INDIVIDUAL PSYCHOTHERAPY, SUPPORTIVE (05/18/16) MEDICATION MANAGEMENT (05/18/16) Family History: States: No Known Family Hx - Social History Hx Tobacco Use: No Hx Alcohol Use: No Hx Substance Use: No - Immunization History Hx Tetanus Toxoid Vaccination: No Hx Influenza Vaccination: No Hx Pneumococcal Vaccination: No Review Of Systems Psych: Positive for: Other (+auditory hallucinations). Negative for: Psychosis , Suicidal ideation Physical Exam - Physical Exam Appears: Non-toxic, No Acute Distress Head: Atraumatic, Normacephalic Eye(s): bilateral: Normal Inspection Neck: Normal ROM Extremity: Normal ROM Neurological/Psych: Oriented x3, Normal Speech ED Course And Treatment O2 Sat by Pulse Oximetry: 96 Progress - Re-Evaluation Re-evaluation Note: 02/18/17 12:59 PER CRISIS MARIANO: PT SP MOBILE CRISIS EVAL AFTER DC FROM ER THIS MORNING. PENDING OUTPT APPT 02/21. PT CLEARED FOR OUTPT FU. - Data Reviewed Data Reviewed: Old records Disposition Counseled Patient/Family Regarding: Diagnosis, Need For Followup - Disposition Referrals: [facility] [Outside] [facility] [Outside] Disposition: HOME/ ROUTINE Disposition Time: 13:00 Condition: GOOD Instructions: Depression (ED) Forms: [facility] (Macedonian), General Discharge Instructions - Clinical Impression Clinical Impression: Depressive disorder - Scribe Statement The provider has reviewed the documentation as recorded by the Scribe (Kiera Griffin) All medical record entries made by the Scribe were at my direction and personally dictated by me. I have reviewed the chart and agree that the record accurately reflects my personal performance of the history, physical exam, medical decision making, and the department course for this patient. I have also personally directed, reviewed, and agree with the discharge instructions and disposition.
== END 2017-02-18 13:49 | disposition home or self-care (01) ==
LOC: C.ER 12:39
DX: F32.9 Major depressive disorder, single episode, unspecified (principal)

== ENCOUNTER 2017-04-23 10:16 | Emergency (ER) | payer MEDICAID ==
[2017-04-23 10:22] VITALS: RESP 20
--- NOTE | 2017-04-23 12:37 | RAD ---
HISTORY: COMPARISON: 09/10/2016. TECHNIQUE: Chest PA and lateral FINDINGS: LINES AND TUBES: None. LUNG AND PLEURA: The lungs are well inflated and clear. HEART AND MEDIASTINUM: The heart is not enlarged. The hilar and mediastinal contours are within normal limits. SKELETAL STRUCTURES: The bony structures are within normal limits for the patient's age. VISUALIZED UPPER ABDOMEN: Normal. OTHER FINDINGS: None. IMPRESSION: No active pulmonary disease.
[2017-04-23 12:41] LABS: SQUAMOUS EPITHIAL 2 /hpf (0-5); URINE BILIRUBIN NEGATIVE (NEGATIVE); URINE BLOOD 3+ (NEGATIVE); URINE CLARITY Hazy (Clear); URINE COLOR Yellow (YELLOW); URINE GLUCOSE (UA) NORMAL (Normal); URINE NITRATE NEGATIVE (NEGATIVE); URINE PROTEIN NEGATIVE (NEGATIVE); URINE UROBILINOGEN NORMAL mg/dL (0.2-1.0)
[2017-04-23 12:56] LABS: URINE LEUKOCYTE ESTERASE 1+ Leu/uL (Negative)
[2017-04-23] MEDS ORDERED: Amoxicillin-Clav 875-125 mg Tab PO STA (13:02)
--- NOTE | 2017-04-23 13:08 | C.PDOC ---
History Of Present Illness 47 year old female presents to the ED for evaluation of dry cough, dizziness, right ear pain, and fever which has been intermittent for 2 days. Patient reports "loss of balance." Contrary to triage, patient denies blood in stool as well as nausea, vomiting, extremity numbness/weakness. Time Seen by Provider: 04/23/17 11:15 Chief Complaint (Nursing): GI Problem History Per: Patient History/Exam Limitations: no limitations Onset/Duration Of Symptoms: Days (2), Intermittent Episodes Current Symptoms Are (Timing): Still Present Additional History Per: Patient Past Medical History Reviewed: Historical Data, Nursing Documentation, Vital Signs Vital Signs: Last Vital Signs Temp 98.2 F 04/23/17 13:51 Pulse 64 04/23/17 13:51 Resp 20 04/23/17 13:51 BP 134/79 04/23/17 13:51 Pulse Ox 96 04/23/17 14:29 - Medical History PMH: Anemia, Anxiety, Asthma, Bipolar Disorder, Depression, HTN (Gestational), Kidney Stones, Post Traumatic Stress Disorder, Chronic Kidney Disease, Schizophrenia Denies: Diabetes, Hepatitis, HIV, Seizures, Sexually Transmitted Disease, TIA Surgical History: No Surg Hx - [facility] Procedures GROUP PSYCHOTHERAPY (02/26/17) INDIVIDUAL PSYCHOTHERAPY, COGNITIVE-BEHAVIORAL (02/26/17) INDIVIDUAL PSYCHOTHERAPY, SUPPORTIVE (02/26/17) INTRODUCTION OF SERUM/TOX/VACCINE INTO MUSCLE, PERC APPROACH (02/26/17) MEDICATION MANAGEMENT (05/18/16) Family History: States: Unknown Family Hx - Social History Hx Tobacco Use: No Hx Alcohol Use: No Hx Substance Use: No - Immunization History Hx Tetanus Toxoid Vaccination: No Hx Influenza Vaccination: No Hx Pneumococcal Vaccination: No Review Of Systems ENT: Positive for: Ear Pain (right) Respiratory: Positive for: Cough. Negative for: Sputum Gastrointestinal: Negative for: Nausea, Vomiting Neurological: Positive for: Dizziness, Other (loss of balance ). Negative for: Weakness, Numbness Physical Exam - Physical Exam Appears: Non-toxic, No Acute Distress Skin: Normal Color, Warm, Dry Head: Atraumatic, Normacephalic Eye(s): bilateral: Normal Inspection Ear(s): Left: Normal, Right: TM Erythema Oral Mucosa: Moist Throat: Normal, No Erythema, No Exudate Neck: Supple Chest: Symmetrical, No Deformity, No Tenderness Cardiovascular: Rhythm Regular, No Murmur Respiratory: Normal Breath Sounds, No Rales, No Rhonchi, No Wheezing Extremity: Normal ROM, Capillary Refill (less than 2 seconds ) Neurological/Psych: Oriented x3, Normal Speech, Normal Cognition Gait: Steady ED Course And Treatment O2 Sat by Pulse Oximetry: 96 (on RA) Pulse Ox Interpretation: Normal - Other Rad CXR X-Ray: Interpreted by Me, Viewed By Me, Read By Radiologist Interpretation: HISTORY: COMPARISON: 09/10/2016. TECHNIQUE: Chest PA and lateral. FINDINGS: LINES AND TUBES: None. LUNG AND PLEURA: The lungs are well inflated and clear. HEART AND MEDIASTINUM: The heart is not enlarged. The hilar and mediastinal contours are within normal limits. SKELETAL STRUCTURES: The bony structures are within normal limits for the patient's age. VISUALIZED UPPER ABDOMEN: Normal. OTHER FINDINGS: None. IMPRESSION: No active pulmonary disease. Medical Decision Making Medical Decision Making: Progress: CXR and UA ordered and reviewed. Augmentin PO, Pyridium PO, Tylenol PO and Zofran PO administered. On re-exam, the patient reports improvement of symptoms. Lungs are CTA, heart is RRR, ambulatory in the ED steady gait, abdomen is soft, non-tender, tolerating PO well, and ambulatory in the ED with steady gait. Disposition - Disposition Referrals: [facility] [Outside] Disposition: HOME/ ROUTINE Disposition Time: 13:04 Condition: GOOD Additional Instructions: Follow up with the medical doctor within 1-2 days. Return if worsened. Prescriptions: Acetaminophen [Tylenol] 325 mg PO Q6 PRN #30 tab PRN Reason: Pain, Mild (1-3) Amoxicillin/Clavulanate [Augmentin 875 MG-125 MG] 1 tab PO BID #14 tab Benzonatate [Tessalon Perles] 200 mg PO TID PRN #21 sgl PRN Reason: Cough Meclizine HCl 25 mg PO TID PRN #21 tab PRN Reason: Dizziness Phenazopyridine HCl [Pyridium] 200 mg PO TID #7 tablet Instructions: Urinary Tract Infections in Adults, Urinary Incontinence, Female (DC) Forms: [facility] (Romanian) - POA Present On Arrival: None - Clinical Impression Clinical Impression: UTI (urinary tract infection), Stress incontinence, Otitis media - PA / [employer] / Resident Statement MD/DO has reviewed & agrees with the documentation as recorded. - Scribe Statement The provider has reviewed the documentation as recorded by the Scribe (Iza Huston) All medical record entries made by the Scribe were at my direction and personally dictated by me. I have reviewed the chart and agree that the record accurately reflects my personal performance of the history, physical exam, medical decision making, and the department course for this patient. I have also personally directed, reviewed, and agree with the discharge instructions and disposition.
[2017-04-23] MEDS ORDERED: Amoxicillin-Clav 875-125 mg Tab PO ONE (13:13)
[2017-04-23 13:54] VITALS: BP 134/79; PULSE 64; TEMP 98.2
[2017-04-23 14:20] VITALS: O2SAT 96
== END 2017-04-23 13:50 | disposition home or self-care (01) ==
LOC: C.ER 10:16
DX: N39.0 Urinary tract infection, site not specified (principal); N39.3 Stress incontinence (female) (male); F20.9 Schizophrenia, unspecified; N18.9 Chronic kidney disease, unspecified

== ENCOUNTER 2017-09-12 14:35 | Emergency (ER) | payer MEDICAID ==
[2017-09-12 14:36] VITALS: BMI 26.6
[2017-09-12 14:44] VITALS: BP 146/109; PULSE 72; TEMP 98.2; O2SAT 99
[2017-09-12 15:32] LABS: SQUAMOUS EPITHIAL 7 /hpf (0-5); URINE BILIRUBIN NEGATIVE (NEGATIVE); URINE BLOOD NEGATIVE (NEGATIVE); URINE CLARITY Hazy (Clear); URINE COLOR Straw (YELLOW); URINE GLUCOSE (UA) NORMAL (Normal); URINE LEUKOCYTE ESTERASE TRACE Leu/uL (Negative); URINE PROTEIN NEGATIVE (NEGATIVE); URINE UROBILINOGEN NORMAL mg/dL (0.2-1.0)
[2017-09-12 15:39] LABS: BASO # 0.1 K/uL (0.0-0.2); BASO % 0.9 % (0.0-2.0); EOS # 0.4 K/uL (0.0-0.7); EOS % 5.5 % (0.0-4.0); HEMOGLOBIN 12.4 g/dL (11.0-16.0); LYMPH # 1.6 K/uL (1.0-4.3); LYMPH % 24.2 % (20.0-40.0); MEAN CELL VOLUME 76.1 fL (81.0-99.0); MEAN CORPUSCULAR HEMOGLOBIN 23.9 pg (27.0-31.0); MEAN CORPUSCULAR HGB CONC 31.5 g/dL (33.0-37.0); MEAN PLATELET VOLUME 8.4 fL (7.2-11.7); MONO # 0.6 K/uL (0.0-0.8); MONO % 8.9 % (0.0-10.0); NEUT % 60.5 % (50.0-75.0); RBC 5.17 Mil/uL (3.80-5.20); RED CELL DISTRIBUTION WIDTH 21.2 % (11.5-14.5); WHITE BLOOD COUNT 6.6 K/uL (4.8-10.8)
[2017-09-12 15:42] LABS: BARBITURATES, UR NEGATIVE (NEGATIVE); BENZODIAZEPINES, UR NEGATIVE (NEGATIVE); PHENCYCLIDINE, UR NEGATIVE (NEGATIVE)
[2017-09-12 15:44] LABS: OPIATES, UR POSITIVE (NEGATIVE)
[2017-09-12 15:58] LABS: ALB/GLOB RATIO 1.6 (1.0-2.1); ALBUMIN 4.3 g/dL (3.5-5.0); ALT/SGPT 31 U/L (9-52); AST/SGOT 26 U/L (14-36); BLOOD UREA NITROGEN 18 mg/dL (7-17); CALCIUM 9.8 mg/dl (8.6-10.4); GFR AFRICAN-AMERICAN > 60; GFR NON-AFRICAN AMERICAN > 60
--- NOTE | 2017-09-12 16:05 | C.PDOC ---
Time Seen by Provider: 09/12/17 14:38 Chief Complaint (Nursing): Psychiatric Evaluation Past Medical History Vital Signs: Last Vital Signs Temp 98.2 F 09/12/17 14:41 Pulse 72 09/12/17 14:41 Resp 19 09/12/17 14:41 BP 146/109 H 09/12/17 14:41 Pulse Ox 99 09/12/17 16:35 - Medical History PMH: Anemia, Anxiety, Asthma, Bipolar Disorder, Depression, HTN (Gestational), Kidney Stones, Post Traumatic Stress Disorder, Chronic Kidney Disease, Schizophrenia Denies: Diabetes, Hepatitis, HIV, Seizures, Sexually Transmitted Disease, TIA - [facility] Procedures GROUP PSYCHOTHERAPY (02/26/17) INDIVIDUAL PSYCHOTHERAPY, COGNITIVE-BEHAVIORAL (02/26/17) INDIVIDUAL PSYCHOTHERAPY, SUPPORTIVE (02/26/17) INTRODUCTION OF SERUM/TOX/VACCINE INTO MUSCLE, PERC APPROACH (02/26/17) MEDICATION MANAGEMENT (05/18/16) Family History: States: Unknown Family Hx, Hypertension - Social History Hx Tobacco Use: No Hx Alcohol Use: No Hx Substance Use: No - Immunization History Hx Tetanus Toxoid Vaccination: No Hx Influenza Vaccination: No Hx Pneumococcal Vaccination: No ED Course And Treatment - Laboratory Results Result Diagrams: 09/12/17 15:33 09/12/17 15:33 O2 Sat by Pulse Oximetry: 99 Medical Decision Making Medical Decision Making: patient medically cleared for crisis Dr. Dasilva will admit to medical surgical floor Disposition Discussed With : Clara Dasilva Counseled Patient/Family Regarding: Studies Performed, Diagnosis - Disposition Disposition: HOME/ ROUTINE Disposition Time: 16:05 Condition: STABLE - Clinical Impression Clinical Impression: Depression
--- NOTE | 2017-09-12 16:06 | C.PDOC ---
History Of Present Illness 47-year-old female, presents to the emergency department with complaints of suicidal ideation. Patient denies any plan. States "my mother is telling me to come home." Denies any HI, nausea/vomiting, chest pain or any other associated symptoms. No other complaints at this time. Time Seen by Provider: 09/12/17 14:38 Chief Complaint (Nursing): Psychiatric Evaluation History Per: Patient History/Exam Limitations: no limitations Current Symptoms Are (Timing): Still Present Past Medical History Reviewed: Historical Data, Nursing Documentation, Vital Signs Vital Signs: Last Vital Signs Temp 98.2 F 09/12/17 14:41 Pulse 72 09/12/17 14:41 Resp 20 09/12/17 16:48 BP 146/109 H 09/12/17 14:41 Pulse Ox 99 09/12/17 16:50 - Medical History PMH: Anemia, Anxiety, Asthma, Bipolar Disorder, Depression, HTN (Gestational), Kidney Stones, Post Traumatic Stress Disorder, Chronic Kidney Disease, Schizophrenia - [facility] Procedures GROUP PSYCHOTHERAPY (02/26/17) INDIVIDUAL PSYCHOTHERAPY, COGNITIVE-BEHAVIORAL (02/26/17) INDIVIDUAL PSYCHOTHERAPY, SUPPORTIVE (02/26/17) INTRODUCTION OF SERUM/TOX/VACCINE INTO MUSCLE, PERC APPROACH (02/26/17) MEDICATION MANAGEMENT (05/18/16) Family History: States: Hypertension - Social History Hx Tobacco Use: No Hx Alcohol Use: No Hx Substance Use: No - Immunization History Hx Tetanus Toxoid Vaccination: No Hx Influenza Vaccination: No Hx Pneumococcal Vaccination: No Review Of Systems Constitutional: Negative for: Fever Cardiovascular: Negative for: Chest Pain Respiratory: Negative for: Shortness of Breath Gastrointestinal: Negative for: Vomiting Psych: Positive for: Suicidal ideation. Negative for: Psychosis Physical Exam - Physical Exam Appears: Non-toxic, No Acute Distress Skin: Normal Color, Warm, Dry, No Rash Head: Atraumatic, Normacephalic Eye(s): bilateral: Normal Inspection Nose: Normal Oral Mucosa: Moist Lips: Normal Appearing Neck: Normal ROM Chest: Symmetrical Cardiovascular: Rhythm Regular, No Murmur Respiratory: Normal Breath Sounds, No Accessory Muscle Use Gastrointestinal/Abdominal: Soft, No Tenderness Extremity: Normal ROM, No Deformity, No Swelling Neurological/Psych: Oriented x3, Normal Speech ED Course And Treatment - Laboratory Results Result Diagrams: 09/12/17 15:33 09/12/17 15:33 O2 Sat by Pulse Oximetry: 99 (RA) Pulse Ox Interpretation: Normal Medical Decision Making Medical Decision Making: patient medically cleared for crisis Dr. Dasilva will admit to medical surgical floor 1620 - crisis phoned back and now would like to discharge patient home. patient cleared for discharge home by crisis. Disposition Discussed With : Clara Dasilva Counseled Patient/Family Regarding: Studies Performed, Diagnosis - Disposition Disposition: HOME/ ROUTINE Disposition Time: 16:20 Condition: STABLE - Clinical Impression Clinical Impression: Depression - Scribe Statement The provider has reviewed the documentation as recorded by the Scribe (Kiera Griffin) All medical record entries made by the Scribe were at my direction and personally dictated by me. I have reviewed the chart and agree that the record accurately reflects my personal performance of the history, physical exam, medical decision making, and the department course for this patient. I have also personally directed, reviewed, and agree with the discharge instructions and disposition.
[2017-09-12 16:49] VITALS: RESP 20
== END 2017-09-12 16:48 | disposition home or self-care (01) ==
LOC: C.ER 14:35 → UNDOADMIN 16:03 → C.9E 16:03 → C.ER 16:48
DX: F32.9 Major depressive disorder, single episode, unspecified (principal); F20.9 Schizophrenia, unspecified

== ENCOUNTER 2017-11-17 21:10 | Emergency (ER) | payer MEDICAID ==
[2017-11-17 21:10] VITALS: BMI 26.6
[2017-11-17 21:27] VITALS: RESP 20
--- NOTE | 2017-11-17 21:32 | C.PDOC ---
History Of Present Illness Pt states she is depressed. Had thought off jumping off light rail, but no actual plan. Has also had kidney stones, complaining of some flank discomfort Time Seen by Provider: 11/17/17 21:31 Chief Complaint (Nursing): Psychiatric Evaluation History Per: Patient Onset/Duration Of Symptoms: Days Current Symptoms Are (Timing): Still Present Suicide/Self Injury Attempted (Context): None Modifying Factor(s): None Severity: None Associated Symptoms: Anxiety, Depression Involuntary Hold By: None Recent travel outside of the [place]: No Additional History Per: Patient Past Medical History Reviewed: Historical Data, Nursing Documentation, Vital Signs Vital Signs: Last Vital Signs Temp 98 F 11/17/17 21:24 Pulse 82 11/17/17 21:24 Resp 20 11/17/17 21:24 BP 156/89 H 11/17/17 21:24 Pulse Ox 98 11/17/17 23:04 - Medical History PMH: Anemia, Anxiety, Asthma, Bipolar Disorder, Depression, HTN (Gestational), Kidney Stones, Post Traumatic Stress Disorder, Chronic Kidney Disease, Schizophrenia Denies: Diabetes, Hepatitis, HIV, Seizures, Sexually Transmitted Disease, TIA - [facility] Procedures GROUP SALES ATTENDANT FOR SUBSTANCE ABUSE TREATMENT, PSYCHOEDUCATION (10/26/17) GROUP SALES ATTENDANT FOR SUBSTANCE ABUSE, COGNITIVE BEHAVIORAL (10/26/17) GROUP PSYCHOTHERAPY (10/26/17) INDIV PSYCHOTHERAPY FOR SUBSTANCE ABUSE TREATMENT, SUPPORT (10/26/17) INDIV PSYCHOTHERAPY FOR SUBSTANCE ABUSE, COGNITIV BEHAVIORAL (10/26/17) INDIV PSYCHOTHERAPY FOR SUBSTANCE ABUSE, PSYCHOEDUCATION (10/26/17) INDIVIDUAL PSYCHOTHERAPY, COGNITIVE-BEHAVIORAL (10/26/17) INDIVIDUAL PSYCHOTHERAPY, SUPPORTIVE (10/26/17) INTRODUCTION OF SERUM/TOX/VACCINE INTO MUSCLE, PERC APPROACH (02/26/17) MEDICATION MANAGEMENT (05/18/16) Family History: States: No Known Family Hx, Hypertension - Social History Hx Tobacco Use: No Hx Alcohol Use: No Hx Substance Use: Yes - Immunization History Hx Tetanus Toxoid Vaccination: No Hx Influenza Vaccination: No Hx Pneumococcal Vaccination: No Review Of Systems Constitutional: Negative for: Fever, Chills Cardiovascular: Negative for: Chest Pain Respiratory: Negative for: Shortness of Breath Gastrointestinal: Negative for: Abdominal Pain Genitourinary: Positive for: Dysuria Musculoskeletal: Negative for: Back Pain Skin: Negative for: Rash Neurological: Negative for: Weakness Psych: Positive for: Depression Physical Exam - Physical Exam Appears: Non-toxic, No Acute Distress Skin: Warm, Dry Oral Mucosa: Moist Neck: Supple Chest: Symmetrical Cardiovascular: Rhythm Regular Respiratory: No Rales, No Rhonchi, No Wheezing Gastrointestinal/Abdominal: Soft, No Tenderness, No Distention Back: Normal Inspection Extremity: Normal ROM Extremity: Bilateral: Atraumatic Neurological/Psych: Oriented x3 Gait: Steady ED Course And Treatment - Laboratory Results Result Diagrams: 11/17/17 21:32 11/17/17 21:57 O2 Sat by Pulse Oximetry: 98 Pulse Ox Interpretation: Normal Progress Note: pt was medically cleared for discharge by dr colon Reevaluation Time: 23:43 Reassessment Condition: Improved Disposition Counseled Patient/Family Regarding: Studies Performed, Diagnosis, Need For Followup, Rx Given - Disposition Referrals: [facility] [Outside] [facility] [Outside] Disposition: HOME/ ROUTINE Disposition Time: 21:32 Condition: FAIR Additional Instructions: Please follow up with [facility] Prescriptions: Nitrofurantoin Macrocrystals [Macrobid] 1 cap PO BID #14 cap Instructions: Depression, Adult (DC), Urinary Tract Infection, Adult (DC), Schizoaffective Disorder (DC) Forms: [facility] (Lithuanian) - Clinical Impression Clinical Impression: Depressive disorder, Schizoaffective disorder, bipolar type, UTI (urinary tract infection)
[2017-11-17 21:50] LABS: BASO # 0.1 K/uL (0.0-0.2); BASO % 1.1 % (0.0-2.0); EOS # 0.9 K/uL (0.0-0.7); EOS % 9.6 % (0.0-4.0); HEMOGLOBIN 11.9 g/dL (11.0-16.0); LYMPH % 21.4 % (20.0-40.0); MEAN CORPUSCULAR HGB CONC 32.4 g/dL (33.0-37.0); MEAN PLATELET VOLUME 7.5 fL (7.2-11.7); MONO # 0.9 K/uL (0.0-0.8); MONO % 9.5 % (0.0-10.0); NEUT # 5.5 K/uL (1.8-7.0); NEUT % 58.4 % (50.0-75.0); RBC 4.79 Mil/uL (3.80-5.20); RED CELL DISTRIBUTION WIDTH 18.2 % (11.5-14.5); WHITE BLOOD COUNT 9.3 K/uL (4.8-10.8)
[2017-11-17 21:53] LABS: HCG,QUALITATIVE URINE NEGATIVE (NEGATIVE)
[2017-11-17 21:58] LABS: SQUAMOUS EPITHIAL 7 /hpf (0-5); URINE BACTERIA OCC (<OCC); URINE BILIRUBIN NEGATIVE (NEGATIVE); URINE BLOOD 3+ (NEGATIVE); URINE CALCIUM OXALATE CRYSTALS FEW /hpf (<OCC); URINE CLARITY Hazy (Clear); URINE COLOR Amber (YELLOW); URINE GLUCOSE (UA) NORMAL (Normal); URINE LEUKOCYTE ESTERASE 3+ Leu/uL (Negative); URINE PROTEIN 2+ mg/dL (NEGATIVE); URINE UROBILINOGEN NORMAL mg/dL (0.2-1.0)
[2017-11-17 22:10] LABS: ALB/GLOB RATIO 1.3 (1.0-2.1); ALBUMIN 3.7 g/dL (3.5-5.0); ALT/SGPT 23 U/L (9-52); AST/SGOT 24 U/L (14-36); BLOOD UREA NITROGEN 18 mg/dL (7-17); CALCIUM 9.1 mg/dl (8.6-10.4); GFR NON-AFRICAN AMERICAN > 60
[2017-11-17 22:47] LABS: BARBITURATES, UR NEGATIVE (NEGATIVE); BENZODIAZEPINES, UR NEGATIVE (NEGATIVE); OPIATES, UR NEGATIVE (NEGATIVE); PHENCYCLIDINE, UR NEGATIVE (NEGATIVE)
[2017-11-17 23:39] VITALS: BP 149/70; PULSE 78; TEMP 98.8
[2017-11-17 23:44] VITALS: O2SAT 98
== END 2017-11-17 23:39 | disposition home or self-care (01) ==
LOC: C.ER 21:10
DX: F32.9 Major depressive disorder, single episode, unspecified (principal); F25.0 Schizoaffective disorder, bipolar type; N39.0 Urinary tract infection, site not specified

== ENCOUNTER 2017-11-26 04:42 | Emergency (ER) | payer MEDICAID ==
[2017-11-26 04:42] VITALS: BMI 26.6
[2017-11-26 05:11] VITALS: TEMP 97.4
[2017-11-26 05:36] LABS: SQUAMOUS EPITHIAL 10 /hpf (0-5); URINE BILIRUBIN NEGATIVE (NEGATIVE); URINE BLOOD 3+ (NEGATIVE); URINE CALCIUM OXALATE CRYSTALS OCC /hpf (<OCC); URINE CLARITY Hazy (Clear); URINE COLOR Yellow (YELLOW); URINE GLUCOSE (UA) NORMAL (Normal); URINE LEUKOCYTE ESTERASE 2+ Leu/uL (Negative); URINE PROTEIN 2+ mg/dL (NEGATIVE); URINE UROBILINOGEN NORMAL mg/dL (0.2-1.0)
[2017-11-26] MEDS ORDERED: Sodium Chloride 0.9% 500 ML IV ONE (05:38)
[2017-11-26 05:41] LABS: HCG,QUALITATIVE URINE NEGATIVE (NEGATIVE)
[2017-11-26] MEDS ORDERED: Oxycodone/Acetaminophen 5/325 mg Tab PO STA (05:45)
--- NOTE | 2017-11-26 05:51 | C.PDOC ---
History Of Present Illness Pt presents to ER with c/o of pain to right flank radiating to right groin intermittenly x 3 weeks. Pt was seen byy Urologist Dr Boogie 3 weeks ago and had stent placed for obstructive right urinary calculus and was later seen at [facility] on 11/19 and pt was told to follow up with Dr Boogie in office but pt states was unable to follow up and now c/o of moderate pain. Pt ran out of medications and is requesting pain meds and Rx for percocet. Time Seen by Provider: 11/26/17 05:05 Chief Complaint (Nursing): Abdominal Pain History Per: Patient History/Exam Limitations: no limitations Onset/Duration Of Symptoms: Intermittent Episodes, Worse Since (this morning) Current Symptoms Are (Timing): Still Present Severity: Moderate Location Of Pain/Discomfort: Suprapubic (and right flank) Associated Symptoms: Urinary Symptoms (hematuria). denies: Fever, Nausea, Vomiting, Other (dysuria) Past Medical History Vital Signs: Last Vital Signs Temp 97.4 F L 11/26/17 05:05 Pulse 71 11/26/17 05:05 Resp 16 11/26/17 05:05 BP 150/78 11/26/17 05:05 Pulse Ox 99 11/26/17 05:05 - Medical History PMH: Anemia, Anxiety, Asthma, Bipolar Disorder, Depression, HTN (Gestational), Kidney Stones, Post Traumatic Stress Disorder, Chronic Kidney Disease, Schizophrenia Denies: Diabetes, Hepatitis, HIV, Seizures, Sexually Transmitted Disease, TIA - [facility] Procedures DILATION OF RIGHT URETER WITH INTRALUMINAL DEVICE, ENDO (10/25/17) GROUP DRY CLEANING MANAGER FOR SUBSTANCE ABUSE TREATMENT, PSYCHOEDUCATION (10/26/17) GROUP DRY CLEANING MANAGER FOR SUBSTANCE ABUSE, COGNITIVE BEHAVIORAL (10/26/17) GROUP PSYCHOTHERAPY (10/26/17) INDIV PSYCHOTHERAPY FOR SUBSTANCE ABUSE TREATMENT, SUPPORT (10/26/17) INDIV PSYCHOTHERAPY FOR SUBSTANCE ABUSE, COGNITIV BEHAVIORAL (10/26/17) INDIV PSYCHOTHERAPY FOR SUBSTANCE ABUSE, PSYCHOEDUCATION (10/26/17) INDIVIDUAL PSYCHOTHERAPY, COGNITIVE-BEHAVIORAL (10/26/17) INDIVIDUAL PSYCHOTHERAPY, SUPPORTIVE (10/26/17) INTRODUCTION OF SERUM/TOX/VACCINE INTO MUSCLE, PERC APPROACH (02/26/17) MEDICATION MANAGEMENT (05/18/16) Family History: States: Unknown Family Hx, Hypertension - Social History Hx Tobacco Use: No Hx Alcohol Use: No Hx Substance Use: Yes - Immunization History Hx Tetanus Toxoid Vaccination: No Hx Influenza Vaccination: No Hx Pneumococcal Vaccination: No Review Of Systems Constitutional: Negative for: Fever Gastrointestinal: Positive for: Abdominal Pain (suprapubic). Negative for: Nausea, Vomiting Genitourinary: Positive for: Hematuria. Negative for: Dysuria Musculoskeletal: Positive for: Back Pain (right flank) Physical Exam - Physical Exam Appears: Well, Non-toxic Skin: Normal Color Eye(s): bilateral: Normal Inspection Respiratory: Normal Breath Sounds Gastrointestinal/Abdominal: Soft, Tenderness (minimal right suprapubic area), No Distention, No Guarding, No Rebound Back: No CVA Tenderness Neurological/Psych: Oriented x3 Gait: Steady ED Course And Treatment - Laboratory Results Result Diagrams: 11/26/17 05:38 11/26/17 06:17 O2 Sat by Pulse Oximetry: 99 Pulse Ox Interpretation: Normal Progress Note: UA, Labs an PO percocet ordered. Labs reviewed and d/w pt- compared with labs 11/19 . Pt had KUB done on 11/19 and pt will f/u with Dr Kohli in office today. Pt is comfortable and is ok leaving for Urology follow up. Will continue current pain meds at home.Pt advised to return if fever, vomiting, severe persistent pain or worse Disposition Counseled Patient/Family Regarding: Diagnosis, Need For Followup - Disposition Referrals: Marcy Boogie MD [Medical Doctor] - Disposition: HOME/ ROUTINE Disposition Time: 05:49 Condition: STABLE Additional Instructions: Please follwo up with Dr Boogie in office today Increase fluids Return to ER if fever, vomiting, severe pain or worse Instructions: Kidney Stones (DC) Forms: [facility] (South Sudanese) - Clinical Impression Clinical Impression: Renal colic, Kidney stone on right side
[2017-11-26 05:59] LABS: BASO # 0.1 K/uL (0.0-0.2); BASO % 1.8 % (0.0-2.0); EOS # 0.8 K/uL (0.0-0.7); EOS % 11.2 % (0.0-4.0); HEMOGLOBIN 11.7 g/dL (11.0-16.0); LYMPH # 1.3 K/uL (1.0-4.3); LYMPH % 19.4 % (20.0-40.0); MEAN CELL VOLUME 76.5 fL (81.0-99.0); MEAN CORPUSCULAR HEMOGLOBIN 24.9 pg (27.0-31.0); MEAN CORPUSCULAR HGB CONC 32.6 g/dL (33.0-37.0); MEAN PLATELET VOLUME 7.5 fL (7.2-11.7); MONO # 0.6 K/uL (0.0-0.8); MONO % 8.1 % (0.0-10.0); NEUT # 4.1 K/uL (1.8-7.0); NEUT % 59.5 % (50.0-75.0); NRBC % 0.1 % (0.0-2.0); RBC 4.72 Mil/uL (3.80-5.20); RED CELL DISTRIBUTION WIDTH 17.6 % (11.5-14.5); WHITE BLOOD COUNT 6.9 K/uL (4.8-10.8)
[2017-11-26] MEDS ORDERED: Oxycodone/Acetaminophen 5/325 mg Tab ONE (06:03)
[2017-11-26 06:27] LABS: ALB/GLOB RATIO 1.3 (1.0-2.1); ALBUMIN 3.6 g/dL (3.5-5.0); ALT/SGPT 28 U/L (9-52); AST/SGOT 27 U/L (14-36); BLOOD UREA NITROGEN 20 mg/dL (7-17); CALCIUM 8.5 mg/dl (8.6-10.4); GFR NON-AFRICAN AMERICAN > 60
[2017-11-26 08:32] VITALS: BP 148/72; PULSE 72; RESP 18; O2SAT 95
== END 2017-11-26 08:32 | disposition home or self-care (01) ==
LOC: C.ER 04:42
DX: N20.0 Calculus of kidney (principal); F20.9 Schizophrenia, unspecified; N18.9 Chronic kidney disease, unspecified

== ENCOUNTER 2017-12-13 08:47 | Emergency (ER) | payer MEDICAID ==
[2017-12-13 08:48] VITALS: BMI 26.6
[2017-12-13] MEDS: Albuterol-Ipratrop 3 mg / 0.5 (3 ml) UD IH SCH ×3 (09:20→09:38)
[2017-12-13 09:24] LABS: BASO # 0.1 K/uL (0.0-0.2); BASO % 1.5 % (0.0-2.0); EOS # 0.8 K/uL (0.0-0.7); EOS % 9.9 % (0.0-4.0); HEMOGLOBIN 12.8 g/dL (11.0-16.0); LYMPH # 1.8 K/uL (1.0-4.3); LYMPH % 22.4 % (20.0-40.0); MEAN CELL VOLUME 76.5 fL (81.0-99.0); MEAN CORPUSCULAR HEMOGLOBIN 24.8 pg (27.0-31.0); MEAN CORPUSCULAR HGB CONC 32.4 g/dL (33.0-37.0); MEAN PLATELET VOLUME 8.4 fL (7.2-11.7); MONO # 0.5 K/uL (0.0-0.8); MONO % 6.3 % (0.0-10.0); NEUT # 4.9 K/uL (1.8-7.0); NEUT % 59.9 % (50.0-75.0); RBC 5.17 Mil/uL (3.80-5.20); RED CELL DISTRIBUTION WIDTH 17.5 % (11.5-14.5); WHITE BLOOD COUNT 8.1 K/uL (4.8-10.8)
--- NOTE | 2017-12-13 09:24 | C.PDOC ---
History Of Present Illness 47 y/o female with history of Asthma, Depression, Schizophrenia and right kidney stent presents to ED with c/o sob for 3 days associated with feeling off balance, chest pain and nausea. Patient speaking in full sentences and denies f ever, vomiting, recent travel, diarrhea or any other complaints at this time. Time Seen by Provider: 12/13/17 09:00 Chief Complaint (Nursing): Shortness Of Breath History Per: Patient History/Exam Limitations: no limitations Onset/Duration Of Symptoms: Days Current Symptoms Are (Timing): Still Present Past Medical History Reviewed: Historical Data, Nursing Documentation, Vital Signs Vital Signs: Last Vital Signs Temp 98.9 F 12/13/17 09:16 Pulse 89 12/13/17 09:16 Resp 24 12/13/17 09:16 BP 159/90 H 12/13/17 09:16 Pulse Ox 95 12/13/17 09:16 - Medical History PMH: Anemia, Anxiety, Asthma, Bipolar Disorder, Depression, HTN (Gestational), Kidney Stones, Post Traumatic Stress Disorder, Chronic Kidney Disease, Schizophrenia Surgical History: No Surg Hx - [facility] Procedures DILATION OF RIGHT URETER WITH INTRALUMINAL DEVICE, ENDO (10/25/17) GROUP GAMING CAGE WORKER FOR SUBSTANCE ABUSE TREATMENT, PSYCHOEDUCATION (10/26/17) GROUP GAMING CAGE WORKER FOR SUBSTANCE ABUSE, COGNITIVE BEHAVIORAL (10/26/17) GROUP PSYCHOTHERAPY (10/26/17) INDIV PSYCHOTHERAPY FOR SUBSTANCE ABUSE TREATMENT, SUPPORT (10/26/17) INDIV PSYCHOTHERAPY FOR SUBSTANCE ABUSE, COGNITIV BEHAVIORAL (10/26/17) INDIV PSYCHOTHERAPY FOR SUBSTANCE ABUSE, PSYCHOEDUCATION (10/26/17) INDIVIDUAL PSYCHOTHERAPY, COGNITIVE-BEHAVIORAL (10/26/17) INDIVIDUAL PSYCHOTHERAPY, SUPPORTIVE (10/26/17) INTRODUCTION OF SERUM/TOX/VACCINE INTO MUSCLE, PERC APPROACH (02/26/17) MEDICATION MANAGEMENT (05/18/16) Family History: States: Hypertension - Social History Hx Tobacco Use: No Hx Alcohol Use: No Hx Substance Use: Yes (deneis) - Immunization History Hx Tetanus Toxoid Vaccination: No Hx Influenza Vaccination: No Hx Pneumococcal Vaccination: No Review Of Systems Constitutional: Negative for: Fever, Chills Respiratory: Positive for: Shortness of Breath Gastrointestinal: Positive for: Nausea, Abdominal Pain. Negative for: Vomiting, Diarrhea Physical Exam - Physical Exam Appears: Non-toxic, No Acute Distress Skin: Warm, Dry, No Rash Head: Atraumatic, Normacephalic Eye(s): bilateral: Normal Inspection Ear(s): Bilateral: Normal Oral Mucosa: Moist Neck: Normal ROM, Supple Cardiovascular: Rhythm Regular Respiratory: No Rales, No Rhonchi, Wheezing (bilateral) Gastrointestinal/Abdominal: Soft, Tenderness (diffuse ), No Guarding, No Rebound Back: No CVA Tenderness Neurological/Psych: Oriented x3, Normal Speech, Normal Cognition ED Course And Treatment - Laboratory Results Result Diagrams: 12/13/17 09:20 12/13/17 09:20 ECG: Interpreted By Me, Viewed By Me ECG Rhythm: Sinus Rhythm Rate From EC (BPM) O2 Sat by Pulse Oximetry: 95 (RA) Pulse Ox Interpretation: Normal Progress Note: CXR, Neb treatment, Blood work, UA Medical Decision Making Medical Decision Making: On re evaluation patient respiratory status has improved. Patient is now c/o right lower groin pain, states where kidney stent was placed and also c/o hematuria. UA shows +blood in urine. CT scan of abdomen ordered. 1415: Spoke with Dr. Boogie advised patient be discharged and follow up with him on Saturday 12/16 Disposition Discussed With .: Marcy Boogie Counseled Patient/Family Regarding: Studies Performed, Diagnosis, Need For Followup - Disposition Referrals: Marcy Boogie MD [Medical Doctor] - Disposition: HOME/ ROUTINE Disposition Time: 14:34 Condition: STABLE Additional Instructions: Please follow up with Dr. Boogie on Saturday (12/16). Instructions: Renal Colic (DC) Forms: [facility] (Moroccan), General Discharge Instructions - POA Present On Arrival: None - Clinical Impression Clinical Impression: Renal colic on right side - Scribe Statement The provider has reviewed the documentation as recorded by the Lorenzoibshonna Kamara All medical record entries made by the Scribe were at my direction and personally dictated by me. I have reviewed the chart and agree that the record accurately reflects my personal performance of the history, physical exam, medical decision making, and the department course for this patient. I have also personally directed, reviewed, and agree with the discharge instructions and disposition.
[2017-12-13] MEDS ORDERED: Albuterol-Ipratrop 3 mg / 0.5 (3 ml) UD ONE (09:28)
[2017-12-13 09:29] LABS: HCG,QUALITATIVE URINE NEGATIVE (NEGATIVE)
[2017-12-13 09:36] LABS: SQUAMOUS EPITHIAL 40 /hpf (0-5); URINE BACTERIA OCC (<OCC); URINE BILIRUBIN NEGATIVE (NEGATIVE); URINE BLOOD 3+ (NEGATIVE); URINE CLARITY Hazy (Clear); URINE COLOR Yellow (YELLOW); URINE GLUCOSE (UA) NORMAL (Normal); URINE LEUKOCYTE ESTERASE 2+ Leu/uL (Negative); URINE PROTEIN 2+ mg/dL (NEGATIVE); URINE UROBILINOGEN NORMAL mg/dL (0.2-1.0)
[2017-12-13 09:51] LABS: ALB/GLOB RATIO 1.3 (1.0-2.1); ALBUMIN 4.2 g/dL (3.5-5.0); ALT/SGPT 32 U/L (9-52); AST/SGOT 32 U/L (14-36); BLOOD UREA NITROGEN 25 mg/dL (7-17); CALCIUM 8.8 mg/dl (8.6-10.4); GFR NON-AFRICAN AMERICAN > 60
[2017-12-13 09:56] LABS: B-TYPE NATRIURETIC PEPTIDE 57.3 pg/mL (0-450); CK-MB 1.06 ng/mL (0.0-3.38)
--- NOTE | 2017-12-13 10:31 | RAD ---
Date of service: 12/13/2017 HISTORY: cough, wheezing. COMPARISON: Comparison chest 04/23/2017.. TECHNIQUE: Chest PA and lateral FINDINGS: LUNGS: No active pulmonary disease. PLEURA: No significant pleural effusion identified. No pneumothorax apparent. CARDIOVASCULAR: No atherosclerotic calcification present Normal. OSSEOUS STRUCTURES: Minor multilevel degenerative spondylosis of the thoracic spine VISUALIZED UPPER ABDOMEN: Normal. OTHER FINDINGS: None. IMPRESSION: No active disease.
[2017-12-13 12:10] VITALS: BP 120/64
--- NOTE | 2017-12-13 13:27 | CT ---
Date of service: 12/13/2017 PROCEDURE: CT abdomen pelvis HISTORY: Abdominal pain COMPARISON: No prior study available for comparison. TECHNIQUE: Contiguous axial images of the abdomen pelvis performed without oral or intravenous contrast material.. 2D sagittal and coronal reformats generated. Radiation dose: Total exam DLP = 770.65 mGy-cm. This CT exam was performed using one or more of the following dose reduction techniques: Automated exposure control, adjustment of the mA and/or kV according to patient size, and/or use of iterative reconstruction technique. FINDINGS: LOWER THORAX: Unremarkable. LIVER: Unremarkable. No gross lesion or ductal dilatation. GALLBLADDER AND BILE DUCTS: Unremarkable. PANCREAS: Unremarkable. No mass. No ductal dilatation. SPLEEN: Unremarkable. No splenomegaly. There is a small splenule adjacent to the anteromedial aspect of the main body of the spleen. ADRENALS: Unremarkable. KIDNEYS AND URETERS: There is an in situ right ureteral stent however there is uncoiling of the proximal pigtail component which is lodged in the proximal right ureter. The. This on pigtail component should optimally be located within the right renal collecting system/right renal pelvis. Dilatation of the right renal collecting system and right renal pelvis to the level of the proximal pigtail component. The ureter distal to this is minimally dilated. The distal coil is appropriately located within the bladder lumen.. Diverticulum there is a small of bladder diverticulum along the right posterolateral inferior margin of the urinary bladder. The urinary bladder wall is thickened which may in part be due to incomplete distention however cystitis should be excluded with urinalysis correlation. BLADDER: As above.. REPRODUCTIVE: There is a small approximately 19 mm left ovarian cyst. APPENDIX: Normal appendix of best seen on coronal sequence image number [id number]. BOWEL: Evaluation of the bowel is somewhat limited due to the lack of oral contrast material. The stomach is partially distended with food debris liquid and air. Visualized loops of small bowel exhibit normal contour and caliber. No evidence of acute mechanical small bowel obstruction. Stool and air seen throughout the large bowel.. Few scattered colonic diverticula seen along the sigmoid colon. PERITONEUM: Unremarkable. No fluid collection. No free air. Small fat containing umbilical hernia. LYMPH NODES: Unremarkable. No enlarged lymph nodes. VASCULATURE: Mild discontinuous calcified atherosclerotic plaque changes of the abdominal aorta and iliac arteries. No aortic aneurysm. BONES: No fracture or destructive lesion. OTHER FINDINGS: None. IMPRESSION: In situ right ureteral stent however there is uncoiling of the proximal pigtail component which is lodged in the proximal right ureter. This proximal pigtail component should optimally be located within the right renal collecting system/right renal pelvis. Dilatation of the right renal collecting system and right renal pelvis to the level of the proximal pigtail component. The ureter distal to this is minimally dilated. The distal coil is appropriately located within the bladder lumen.. Diverticulum there is a small of bladder diverticulum along the right posterolateral inferior margin of the urinary bladder. The urinary bladder wall is thickened which may in part be due to incomplete distention however cystitis should be excluded with urinalysis correlation Left ovarian cyst. Few scattered colonic diverticula without radiographic evidence of acute diverticulitis.
[2017-12-13 14:50] VITALS: PULSE 82; RESP 20; TEMP 98.7; O2SAT 96
--- NOTE | 2017-12-14 06:35 | CARD ---
APPROVED REPORT Date of service: 12/13/2017 EKG Measurement Heart [id number] <Conclusion> Normal sinus rhythm Normal ECG
== END 2017-12-13 15:03 | disposition home or self-care (01) ==
LOC: C.ER 08:47
DX: N23 Unspecified renal colic (principal); I12.9 Hypertensive chronic kidney disease with stage 1 through stage 4 chronic kidney disease, or unspecified chronic kidney disease; N18.9 Chronic kidney disease, unspecified; J45.909 Unspecified asthma, uncomplicated
CPT/HCPCS: 71046; 74176; 80053; 81001; 82553; 82948; 83880; 84484; 84703; 85025; 87086; 87181; 93005; 94150; 94640; 96374; 96375; 99285; J2270; J2930

== ENCOUNTER 2017-12-21 09:35 | Emergency (ER) | payer MEDICAID ==
[2017-12-21 09:36] VITALS: BMI 26.6
--- NOTE | 2017-12-21 09:55 | C.PDOC ---
History Of Present Illness 47 years old female with PMHx of HTN (non compliant with medications) presents to ED for complaints of panic attack that began [employer] while at the long-term but now resolved. Patient reports while at the long-term she felt crowded and took paxil at 5AM then took an extra dose at 9AM. Patient also states staff at the long-term kept bothering her then kicked her out and told her she is not allowed to return until 3pm. Denies any other physical complaints. Time Seen by Provider: 12/21/17 09:38 History Per: Patient History/Exam Limitations: no limitations Onset/Duration Of Symptoms: Hrs Current Symptoms Are (Timing): Still Present Suicide/Self Injury Attempted (Context): None Modifying Factor(s): None Associated Symptoms: Other (Panic attack ). denies: Suicidal Thoughts, Suicidal Plan Recent travel outside of the [place]: No Past Medical History Reviewed: Historical Data, Nursing Documentation, Vital Signs - Medical History PMH: Anemia, Anxiety, Asthma, Bipolar Disorder, Depression, HTN (Gestational), Kidney Stones, Post Traumatic Stress Disorder, Chronic Kidney Disease, Schizophrenia - [facility] Procedures DILATION OF RIGHT URETER WITH INTRALUMINAL DEVICE, ENDO (10/25/17) GROUP ESTHETICIAN FACIALIST FOR SUBSTANCE ABUSE TREATMENT, PSYCHOEDUCATION (10/26/17) GROUP ESTHETICIAN FACIALIST FOR SUBSTANCE ABUSE, COGNITIVE BEHAVIORAL (10/26/17) GROUP PSYCHOTHERAPY (10/26/17) INDIV PSYCHOTHERAPY FOR SUBSTANCE ABUSE TREATMENT, SUPPORT (10/26/17) INDIV PSYCHOTHERAPY FOR SUBSTANCE ABUSE, COGNITIV BEHAVIORAL (10/26/17) INDIV PSYCHOTHERAPY FOR SUBSTANCE ABUSE, PSYCHOEDUCATION (10/26/17) INDIVIDUAL PSYCHOTHERAPY, COGNITIVE-BEHAVIORAL (10/26/17) INDIVIDUAL PSYCHOTHERAPY, SUPPORTIVE (10/26/17) INTRODUCTION OF SERUM/TOX/VACCINE INTO MUSCLE, PERC APPROACH (02/26/17) MEDICATION MANAGEMENT (05/18/16) Family History: States: Hypertension - Social History Hx Tobacco Use: No Hx Alcohol Use: No Hx Substance Use: Yes (deneis) - Immunization History Hx Tetanus Toxoid Vaccination: No Hx Influenza Vaccination: No Hx Pneumococcal Vaccination: No Review Of Systems Constitutional: Negative for: Fever, Chills Respiratory: Negative for: Shortness of Breath Gastrointestinal: Negative for: Nausea, Vomiting, Diarrhea Skin: Negative for: Rash Neurological: Negative for: Weakness, Numbness Psych: Positive for: Other (Panic attack ). Negative for: Suicidal ideation Physical Exam - Physical Exam Appears: Non-toxic, No Acute Distress Skin: Normal Color, Warm, Dry, No Rash Head: Atraumatic Eye(s): bilateral: Normal Inspection, PERRL, EOMI Oral Mucosa: Moist Neck: Normal ROM, Supple Chest: Symmetrical, No Tenderness Cardiovascular: Rhythm Regular, No Murmur Respiratory: Normal Breath Sounds, No Decreased Breath Sounds, No Rales, No Rhonchi, No Wheezing, Other (NARD) Gastrointestinal/Abdominal: Bowel Sounds (Active ), Soft, No Tenderness Extremity: Normal ROM Extremity: Bilateral: Normal Color And Temperature, Normal ROM Pulses: Left Radial: Normal, Right Radial: Normal Neurological/Psych: Oriented x3, Normal Speech, Other (Calm. Cooperative. ) Gait: Steady Progress - Data Reviewed Data Reviewed: Old records Disposition Counseled Patient/Family Regarding: Diagnosis, Need For Followup - Disposition Referrals: [facility] [Outside] [facility] [Outside] Disposition: HOME/ ROUTINE Disposition Time: 09:54 Condition: GOOD Instructions: Anxiety, Adult (DC) - Clinical Impression Clinical Impression: Homelessness, Anxiety - Scribe Statement The provider has reviewed the documentation as recorded by the Scribe Km Sifuentes All medical record entries made by the Scribe were at my direction and personally dictated by me. I have reviewed the chart and agree that the record accurately reflects my personal performance of the history, physical exam, medical decision making, and the department course for this patient. I have also personally directed, reviewed, and agree with the discharge instructions and disposition.
[2017-12-21 10:07] VITALS: BP 196/116; PULSE 92; RESP 18; TEMP 98.2; O2SAT 100
== END 2017-12-21 10:03 | disposition home or self-care (01) ==
LOC: C.ER 09:35
DX: F41.9 Anxiety disorder, unspecified (principal); Z59.0 Homelessness